=== PATIENT | female | born 1945 | race Caucasian/White ===

== ENCOUNTER → 2016-10-10 | Outpatient (CLI) | payer MEDICARE, OTHER | END | disposition home or self-care (01) | LOC: GMAJ 10:32 | PROVIDERS: ATTEND Family Medicine | DX: D50.9 Iron deficiency anemia, unspecified (principal); E78.1 Pure hyperglyceridemia ==

== ENCOUNTER 2016-11-12 11:20 | Emergency (ER) | payer MEDICARE, OTHER ==
--- NOTE | 2016-11-12 11:50 | ED.PDOC ---
History of Present Illness - General Chief Complaint: Problem Stated Complaint: UTI, dehydration Time Seen by Provider: 11/12/16 11:28 Source: patient, RN notes reviewed, Vital Signs reviewed Exam Limitations: no limitations - History of Present Illness Initial Comments: Patient came in because she is concerned she may be dehydrated and have a UTI. Her only symptoms are feeling shaky and a little dizzy. Drinking her normal amount of fluids. No urinary symptoms. No back pain. She is concerned because she had similar symptoms 18 months ago and at that time she was dehydrated and had a bad UTI. Timing/Duration: this morning Quality: mild Onset Location: other - None Radiation: none Prior abdominal problems: similar symptoms - Dx with UTI Improving Factors: nothing Worsening Factors: nothing Associated Symptoms: denies symptoms Allergies/Adverse Reactions: Allergies Atropine Allergy (Verified 11/12/16 11:53) Carisoprodol [From Soma] Allergy (Verified 11/12/16 11:53) Home Medications: Ambulatory Orders Amlodipine Besylate-Benazepril [Lotrel 5-20 mg] 1 cap PO DAILY 04/22/15 Ascorbic Acid [Vitamin C] 500 mg PO DAILY 04/22/15 Aspirin [Aspirin Adult Low Dose] 81 mg PO DAILY 04/22/15 Calcium 600 mg PO DAILY 04/22/15 Cholecalciferol [Vitamin D3] 1,000 unit PO DAILY 04/22/15 Cyanocobalamin [Vitamin B12] 500 mcg PO DAILY 04/22/15 Folic Acid 1 mg PO DAILY 04/22/15 Vitamin E 400 unit PO DAILY 04/22/15 Nitrofurantoin Monohydrate Mac [Macrobid] 100 mg PO BID #14 cap 01/02/16 Review of Systems - Review of Systems Constitutional: States: no symptoms reported. Denies: chills, diaphoresis, fever, malaise, weakness EENTM: States: no symptoms reported Respiratory: States: no symptoms reported. Denies: cough, short of breath Cardiology: States: palpitations. Denies: chest pain Gastrointestinal/Abdominal: States: no symptoms reported. Denies: abdominal pain, nausea, vomiting Genitourinary: States: no symptoms reported. Denies: dysuria, frequency, hematuria Musculoskeletal: States: no symptoms reported. Denies: back pain Skin: Denies: no symptoms reported Neurological: States: other - shaky and dizzy All other Systems: No Change from Baseline Past Medical History (General) - Patient Medical History Hx Seizures: No Hx Stroke: No Hx Dementia: No Hx Asthma: No Hx of COPD: No Hx Cardiac Disorders: No Hx Congestive Heart Failure: No Hx Pacemaker: No Hx Hypertension: Yes Hx Thyroid Disease: No Hx Diabetes: No Hx Gastroesophageal Reflux: Yes Hx Renal Disease: No Hx Cancer: No Hx of HIV: No Hx Hepatitis C: No Hx MRSA: No - Vaccination History Hx Tetanus, Diphtheria Vaccination: Yes Hx Influenza Vaccination: Yes Hx Pneumococcal Vaccination: Yes - Social History Hx Tobacco Use: No Hx Chewing Tobacco Use: No Hx Alcohol Use: No Hx Substance Use: No Hx Substance Use Treatment: No Hx Depression: No Hx Physical Abuse: No Hx Emotional Abuse: No Hx Suspected Abuse: No - Female History Patient : No Family Medical History - Family History Mother Family History: Unknown Living Status: Hx Family Cancer: Yes - rectal Physical Exam - Physical Exam General Appearance: Alert, Comfortable, No apparent distress, Well Developed, Well Groomed, Well Hydrated, Well Nourished Neck: non-tender, full range of motion, supple, normal inspection Cardiovascular/Respiratory: regular rate, rhythm, no M/R/G, normal breath sounds , no respiratory distress Gastrointestinal/Abdominal: normal bowel sounds, non tender, soft, no organomegaly, no pulsatile mass Back Exam: normal inspection, no CVA tenderness Extremity: normal range of motion, non-tender, normal inspection, no pedal edema Neurologic: no motor/sensory deficits, alert, normal mood/affect, oriented x 3 Skin Exam: normal color, warm/dry Comments: Vital Signs - 24 hr 11/12/16 11/12/16 11/12/16 11:40 12:38 13:49 Temperature 97.7 F Pulse Rate [ 88 84 86 Apical] Respiratory 18 18 16 Rate Blood Pressure 178/87 181/94 176/86 [Left Arm] O2 Sat by Pulse 97 95 98 Oximetry Progress - Progress Progress: 11/12/16 14:32 Patient had some BP elevation so gave some Cardizem Patient now is dressed and reports she is ready to go. - Results/Orders Results/Orders: Laboratory Tests 11/12/16 11/12/16 11/12/16 11:47 11:47 11:56 WBC 8.7 RBC 4.41 Hgb 13.8 Hct 42.0 MCV 95.3 MCH 31.3 H MCHC 32.8 L RDW 15.2 H Plt Count 341 MPV 8.8 Absolute Neuts (auto) 5.10 Absolute Lymphs (auto) 2.80 Absolute Monos (auto) 0.60 Absolute Eos (auto) 0.10 Absolute Basos (auto) 0.10 Neutrophils % 58.3 Lymphocytes % 32.3 Monocytes % 7.0 Eosinophils % 1.1 Basophils % 1.3 Sodium 140 Potassium 3.6 Chloride 104 Carbon Dioxide 27 Anion Gap 12.6 BUN 28 H Creatinine 1.21 BUN/Creatinine Ratio 23.1 H Random Glucose 103 Serum Osmolality 285.1 Calcium 9.3 Total Bilirubin 0.7 AST 19 ALT 11 Alkaline Phosphatase 66 Serum Total Protein 7.4 Albumin 4.5 Globulin 2.9 Albumin/Globulin Ratio 1.6 Urine Color Yellow Urine Appearance Clear Urine pH 6.5 Ur Specific [place] 1.015 Urine Protein Negative Urine Glucose (UA) Negative Urine Ketones Trace Urine Blood Negative Urine Nitrite Negative Urine Bilirubin Negative Urine Urobilinogen 0.2 Ur Leukocyte Esterase Trace H Urine RBC 0 Urine WBC 1-3 Ur Epithelial Cells 1-3 Urine Bacteria 0 Departure - Departure Clinical Impression: Dehydration Hypertension Qualifiers: Hypertension type: essential hypertension Qualified Code(s): I10 - Essential ( primary) hypertension Time of Disposition: 14:34 Disposition: Discharge to Home or Self Care Condition: Good Departure Forms: ED Discharge - Pt. Copy, Patient Portal Self Enrollment Instructions: DI for Dehydration -- Adult, High Blood Pressure Diet: resume usual diet Activity: increase activity as tolerated Referrals: Shalom Marcus MD [Primary Care Provider] - 1-2 Weeks Home Medications: Ambulatory Orders Amlodipine Besylate-Benazepril [Lotrel 5-20 mg] 1 cap PO DAILY 04/22/15 Ascorbic Acid [Vitamin C] 500 mg PO DAILY 04/22/15 Aspirin [Aspirin Adult Low Dose] 81 mg PO DAILY 04/22/15 Calcium 600 mg PO DAILY 04/22/15 Cholecalciferol [Vitamin D3] 1,000 unit PO DAILY 04/22/15 Cyanocobalamin [Vitamin B12] 500 mcg PO DAILY 04/22/15 Folic Acid 1 mg PO DAILY 04/22/15 Vitamin E 400 unit PO DAILY 04/22/15 Nitrofurantoin Monohydrate Mac [Macrobid] 100 mg PO BID #14 cap 01/02/16
[2016-11-12 11:52] VITALS: TEMP 97.7
[2016-11-12] MEDS: SODIUM CHLORIDE 0.9% 1000ML 1,000 ML IVS ONE (13:15)
[2016-11-12 13:50] VITALS: O2SAT 98
[2016-11-12 14:45] VITALS: BP 160/86
== END 2016-11-12 14:46 | disposition home or self-care (01) ==
LOC: ER 11:20
DX: E86.0 Dehydration (principal); I10 Essential (primary) hypertension; K21.9 Gastro-esophageal reflux disease without esophagitis; Z88.8 Allergy status to other drugs, medicaments and biological substances; Z79.82 Long term (current) use of aspirin; Z79.899 Other long term (current) drug therapy
CPT/HCPCS: 36415; 80053; 81001; 85025; J7030

== ENCOUNTER → 2016-12-29 | Outpatient (CLI) | payer MEDICARE, OTHER | LOC: GMA 15:03 | PROVIDERS: ATTEND Nurse Practitioner Family | DX: N39.0 Urinary tract infection, site not specified (principal) ==

== ENCOUNTER → 2017-05-01 | Outpatient (CLI) | payer MEDICARE, OTHER ==
--- NOTE | 2017-05-03 11:07 | MAM ---
EXAM DESCRIPTION: 3D Screening BILATERAL : Digital Mammography. CLINICAL HISTORY: 71 years Female SCREENING . No complaints. Remote family history of breast cancer. Postmenopausal. No HRT. Bilateral breast biopsies. COMPARISON: 2-D digital screening bilateral studies 04/17/2016 and 04/06/2014. No prior reports available. Reports from prior examinations also reviewed. Report from prior examination also reviewed. TECHNIQUE: Bilateral CC and MLO projection full-field images, 3-D tomosynthesis digital mammographic technique. Also bilateral synthesized CC/ MLO full-field images. CAD not utilized. FINDINGS: The breast parenchymal density pattern is: Heterogeneously dense breast tissue, which may obscure small masses. No skin thickening or nipple retraction . Numerous microcalcifications associated with dense fibroglandular tissues bilaterally. Groups of heterogeneous calcifications at the 1200 clock position and 130 clock position of the middle third of the left breast. Also the tendon 100 clock position in the anterior third of the breast. Calcifications appear to have increased since the prior study. Group of heterogeneous calcifications in the middle third of the lower inner quadrant of the right breast and the upper outer quadrant of the posterior third of the right breast, associated with dense fibroglandular tissues. Calcifications are more distinct and appear to have increased since the prior studies. Vascular calcifications.. No focal, stellate mass or density, and no focal asymmetry bilaterally. IMPRESSION: BI-RADS CATEGORY: 0 - INCOMPLETE- Need additional imaging evaluation. FOLLOW-UP: Recall for additional imaging: Bilateral 3-D tomosynthesis full field LM images. Bilateral digital orthogonal spot magnification images. Targeted ultrasound upper outer quadrant posterior third right breast. Written communication concerning the IMPRESSION and Follow-up, will be mailed to the patient and referring health care provider. Electronically signed by: Tim Mendiola MD 05/03/2017 11:05 AM CDT
== END ==
LOC: MAMMO 08:34
PROVIDERS: ATTEND Family Medicine
DX: Z12.31 Encounter for screening mammogram for malignant neoplasm of breast (principal)
CPT/HCPCS: 77063; G0202

== ENCOUNTER → 2017-05-15 | Outpatient (CLI) | payer MEDICARE, OTHER ==
--- NOTE | 2017-05-15 15:26 | US ---
EXAM DESCRIPTION: Breast,Bilateral: Ultrasound CLINICAL HISTORY: 71 yearsFemaleABNORMAL MAMMO COMPARISON: Digital 3-D tomosynthesis diagnostic bilateral breast on this visit. TECHNIQUE: Transcutaneous scanning of the bilateral breasts utilizing two-dimensional and Doppler modes. Scanning performed by the poultry and fish butcher and Dr. Mendiola. FINDINGS: Heterogeneous fibroglandular and fatty tissues at the 1200 clock position of the left breast 7 cm from the nipple also extending posterior. No large calcifications. Nonvascular. Similar appearing tissue at the 900 clock position of the left breast 11 cm from the nipple. Nonvascular. No skin thickening bilaterally. No discrete solid mass or cyst. No large calcifications or parenchymal edema. IMPRESSION: 1. Bi-Rads Category 2: Benign. 2. Please refer to bilateral breast 3-D tomosynthesis diagnostic examination and report on this visit. The FINDINGS and the follow-up plan were reviewed in person with the patient after the examination. Written communication explaining the IMPRESSION and follow-up will be mailed to the patient and referring care provider. Electronically signed by: Tim Mendiola MD 05/15/2017 3:24 PM [facility]
--- NOTE | 2017-05-15 15:27 | MAM ---
EXAM DESCRIPTION: 3D Diagnostic, Bilateral: Digital Mammography CLINICAL HISTORY: 71 yearsFemaleABNORMAL MAMMO. Bilateral diffuse microcalcifications and dense breast tissue.. COMPARISON: 3-D tomosynthesis bilateral breasts screening examination 05/01/2017. Targeted bilateral breast ultrasound on this visit. Report from prior examination also reviewed. TECHNIQUE: Bilateral LM projection full-field images, 3-D tomosynthesis digital mammographic technique. Also bilateral synthesized LM full-field images. Bilateral 2-D digital magnification views of the regions of interest, CC and LM projections. CAD not utilized. FINDINGS: The breast parenchymal density pattern is: Heterogeneously dense breast tissue, which may obscure small masses. No skin thickening or nipple retraction dense fibroglandular tissues at the 1200 clock position of the left breast in the middle third of the breast. Associated with microcalcifications which are also seen in the upper outer quadrant. Densities fibroglandular tissues in the posterior third of the right breast centrally and laterally at 900 clock position. Calcifications are heterogeneous and mostly round. Some dystrophic calcifications. No focal, stellate mass or density, focal asymmetry , and no suspicious microcalcifications bilaterally. Ultrasound: Heterogeneous fibroglandular and fatty tissues at the 1200 clock position of the left breast 7 cm from the nipple also extending posterior. No large calcifications. Nonvascular. Similar appearing tissue at the 900 clock position of the left breast 11 cm from the nipple. Nonvascular. No skin thickening bilaterally. No discrete solid mass or cyst. No large calcifications or parenchymal edema. IMPRESSION: BI-RADS CATEGORY: 2 - BENIGN FINDINGS. FOLLOW UP: Return to routine digital bilateral screening, one year interval from April 2017. The FINDINGS and the follow-up plan were reviewed in person with the patient after the examination. Written communication explaining the IMPRESSION and follow-up will be mailed to the patient and referring care provider. According to the [employer], yearly mammograms are recommended starting at age 40 and continuing as long as a woman is in good health. Any breast change noted on a breast self-exam should be reported promptly to the patient's healthcare provider. Breast MRI is recommended for women with an approximately 20-25% or greater lifetime risk of breast cancer, including women with a strong family history of breast or ovarian cancer and women who have been treated for Hodgkin's disease. A negative mammographic report should not delay tissue diagnosis in patients with significant clinical history or physical findings. Extremely dense breast tissue limits the sensitivity of digital mammography. Electronically signed by: Tim Mendiola MD 05/15/2017 3:25 PM [facility]
== END | disposition home or self-care (01) ==
LOC: MAMMO 11:23
PROVIDERS: ATTEND Family Medicine
DX: R92.8 Other abnormal and inconclusive findings on diagnostic imaging of breast (principal)
CPT/HCPCS: 76641; G0204; G0279

== ENCOUNTER → 2017-10-10 | Outpatient (CLI) | payer MEDICARE, OTHER ==
--- NOTE | 2017-10-10 16:25 | US ---
EXAM DESCRIPTION: Carotid Duplex: ULTRASOUND. CLINICAL HISTORY: OCCLUSION AND STENOSIS OF RIGHT CAROTID ARTERY COMPARISON: MRI scan of the brain and IACs on the same visit. TECHNIQUE: Transcutaneous scanning utilizing 2-dimensional and Doppler modes to evaluate the bilateral carotid systems and vertebral arteries. Percentage of diameter of stenosis or no stenosis recorded will be based upon NASCET criteria. FINDINGS: Peak systolic/end diastolic (CM-Sec) CCA Right 71/15 Left 80/25. ICA Right proximal 41/17, distal 42/19. Left proximal 25/10, Distal 49/26. Vertebral Right 56/23 Left 44/13. ECA (PS Only) Right 54 left 58. ICA/CCA peak systolic ratio: Right 0.6 Left 0.6 ICA/CCA end diastolic ratio: Right 1.2 Left 1.1 Vertebral arteries: antegrade flow. Comments: Bilateral atherosclerotic calcification in the bifurcations. Spectral broadening in the mid right ICA. Area stenosis in the proximal right ICA 33%; diameter stenosis 37%. IMPRESSION: 1. Doppler evaluation of the bilateral carotid systems and vertebral arteries shows no hemodynamically significant stenoses. 2. No significant amount of plaque seen in the carotid arteries bilaterally. Bilateral vertebral arteries showed antegrade-cephalad flow. Electronically signed by: Tim Mendiola MD 10/10/2017 4:24 PM CDT
--- NOTE | 2017-10-10 16:38 | MRI ---
EXAM DESCRIPTION: Brain and IAC w/o Contrast: Magnetic Resonance Imaging. CLINICAL HISTORY: TINNITUS COMPARISON: Duplex ultrasound of the bilateral carotid and vertebral arteries on this visit. TECHNIQUE: Diffusion axial imaging of the brain. Multiplanar high-field unit, multiple conventional sequences through the IACs, and the brain, without gadolinium IV contrast. FINDINGS: Normal signal in the IACs with no abnormal enhancement and no mass. No fluid in the mastoid air cells. Normal contour of the cerebellopontine angles with no mass. No aneurysm of the distal vertebral arteries or proximal basilar artery in the premedullary space. Included paranasal sinuses are unremarkable. Pituitary gland occupies most of the sella compartment. Bony calvarium is intact. Base of the cerebellar tonsils is above the foramen magnum. Multiple foci of bright FLAIR signal in the periventricular white matter and arriola-white matter junctions of the cerebral hemispheres. Similar focal bright signal anterior to the left basal ganglia. No hemorrhage, no cerebral edema, no mass-effect. Normal signal in the brainstem and cerebellar hemispheres. No hemorrhage, no cerebral edema, no mass-effect. Concordance of the diffusion and non-diffusion sequences with no evidence of acute or subacute infarction. Cortical sulci, ventricles, and other CSF spaces, and the subdural spaces are normally configured for patients age..No effacement or displacement. No midline shift. No extra-axial hemorrhage. IMPRESSION: 1. No mass effect in the cerebellopontine angles. Bilateral 7th and 8th cranial nerves appear symmetric. Vessels in the premedullary CSF space and prepontine space are unremarkable. 2. Bilateral multifocal white matter signal most likely related to cerebral microvascular disease or age-related changes. No hemorrhage cerebral edema or mass effect. 3. Normal noncontrast MRI diffusion study with no evidence of acute or subacute infarction. Electronically signed by: Tim Mendiola MD 10/10/2017 4:36 PM CDT
== END | disposition home or self-care (01) ==
LOC: MRI 13:30
PROVIDERS: ATTEND Family Medicine
DX: H93.19 Tinnitus, unspecified ear (principal); I65.21 Occlusion and stenosis of right carotid artery

== ENCOUNTER → 2017-11-05 | Outpatient (CLI) | payer MEDICARE, OTHER | LOC: GMAJ 18:49 | PROVIDERS: ATTEND Family Medicine | DX: H53.8 Other visual disturbances (principal); L02.416 Cutaneous abscess of left lower limb ==

== ENCOUNTER 2017-11-25 08:10 | Emergency (ER) | payer MEDICARE, OTHER ==
[2017-11-25 08:29] VITALS: TEMP 96.1
[2017-11-25] MEDS ORDERED: SODIUM CHLORIDE 0.9% 1000ML 1,000 ML IVS ONE (08:38)
--- NOTE | 2017-11-25 08:38 | ED.PDOC ---
History of Present Illness - General Chief Complaint: GI Problem Stated Complaint: diarrhea Time Seen by Provider: 11/25/17 08:35 Source: patient, Vital Signs reviewed Exam Limitations: no limitations - History of Present Illness Timing/Duration: 1 week Improving Factors: nothing Associated Symptoms: malaise, weakness Allergies/Adverse Reactions: Allergies Atropine Allergy (Verified 11/12/16 11:53) Carisoprodol [From Soma] Allergy (Verified 11/12/16 11:53) Home Medications: Ambulatory Orders Ascorbic Acid [Vitamin C] 500 mg PO DAILY 04/22/15 Aspirin [Aspirin Adult Low Dose] 81 mg PO DAILY 04/22/15 Calcium 600 mg PO DAILY 04/22/15 Cyanocobalamin [Vitamin B12] 500 mcg PO DAILY 04/22/15 Folic Acid 1 mg PO DAILY 04/22/15 Vitamin E 400 unit PO DAILY 04/22/15 Amlodipine Besylate-Benazepril [Lotrel 10-20 mg] 1 cap PO DAILY 11/25/17 Ciprofloxacin [Cipro] 500 mg PO BID #20 tab 11/25/17 metroNIDAZOLE [Flagyl] 500 mg PO Q8H #30 tab 11/25/17 Review of Systems - Review of Systems Constitutional: States: no symptoms reported EENTM: States: no symptoms reported Respiratory: States: no symptoms reported Cardiology: States: no symptoms reported Gastrointestinal/Abdominal: States: see HPI, abdominal pain, diarrhea Genitourinary: States: no symptoms reported Musculoskeletal: States: no symptoms reported Skin: States: no symptoms reported Neurological: States: no symptoms reported Endocrine: States: no symptoms reported Hematologic/Lymphatic: States: no symptoms reported Past Medical History (General) - Patient Medical History Hx Seizures: No Hx Stroke: No Hx Dementia: No Hx Asthma: No Hx of COPD: No Hx Cardiac Disorders: No Hx Congestive Heart Failure: No Hx Pacemaker: No Hx Hypertension: Yes Hx Thyroid Disease: No Hx Diabetes: No Hx Gastroesophageal Reflux: Yes Hx Renal Disease: No Hx Cancer: No Hx of HIV: No Hx Hepatitis C: No Hx MRSA: No Surgical History: appendectomy, cholecystectomy, tonsillectomy - Vaccination History Hx Tetanus, Diphtheria Vaccination: Yes Hx Influenza Vaccination: Yes Hx Pneumococcal Vaccination: Yes - Social History Hx Tobacco Use: Yes Hx Chewing Tobacco Use: No Hx Alcohol Use: No Hx Substance Use: No Hx Substance Use Treatment: No Hx Depression: No Hx Physical Abuse: No Hx Emotional Abuse: No Hx Suspected Abuse: No - Female History Patient : No Family Medical History - Family History Mother Family History: Unknown Living Status: Hx Family Cancer: Yes - rectal Physical Exam - Physical Exam General Appearance: Alert, Comfortable Eye Exam: bilateral normal Ears, Nose, Throat: hearing grossly normal, normal ENT inspection Neck: non-tender, full range of motion, supple Respiratory: chest non-tender, lungs clear, normal breath sounds, no respiratory distress Cardiovascular/Chest: normal peripheral pulses, regular rate, rhythm, no edema, no gallop, no JVD, no murmur Gastrointestinal/Abdominal: normal bowel sounds, non tender, soft, no organomegaly, no pulsatile mass, abnormal bowel sounds Back Exam: normal inspection, no CVA tenderness, no vertebral tenderness Extremity: normal range of motion, non-tender, normal inspection Neurologic: cable inspector II-XII nml as tested, no motor/sensory deficits, alert, normal mood/affect, oriented x 3 Progress - Results/Orders Results/Orders: Laboratory Tests 11/25/17 11/25/17 08:53 08:53 WBC 10.2 RBC 4.56 Hgb 14.2 Hct 43.0 MCV 94.3 MCH 31.1 H MCHC 32.9 L RDW 15.2 H Plt Count 398 MPV 9.3 Absolute Neuts (auto) 6.90 H Absolute Lymphs (auto) 2.40 Absolute Monos (auto) 0.70 Absolute Eos (auto) 0.20 Absolute Basos (auto) 0.10 Neutrophils % 68.0 Lymphocytes % 23.0 Monocytes % 6.5 Eosinophils % 1.7 Basophils % 0.8 Sodium 140 Potassium 3.6 Chloride 106 Carbon Dioxide 25 Anion Gap 12.6 BUN 22 H Creatinine 1.03 BUN/Creatinine Ratio 21.4 H Random Glucose 93 Serum Osmolality 282.4 Calcium 9.0 Total Bilirubin 0.4 AST 21 ALT 11 Alkaline Phosphatase 56 Serum Total Protein 7.9 Albumin 4.5 Globulin 3.4 Albumin/Globulin Ratio 1.3 Departure - Departure Clinical Impression: Diarrhea, Diverticulitis of sigmoid colon Time of Disposition: 09:57 Disposition: Discharge to Home or Self Care Condition: Good Departure Forms: ED Discharge - Pt. Copy, Patient Portal Self Enrollment Referrals: Shalom Marcus MD [Primary Care Provider] - 1-2 Weeks Prescriptions: Ciprofloxacin [Cipro] 500 mg PO BID #20 tab metroNIDAZOLE [Flagyl] 500 mg PO Q8H #30 tab Home Medications: Ambulatory Orders Ascorbic Acid [Vitamin C] 500 mg PO DAILY 04/22/15 Aspirin [Aspirin Adult Low Dose] 81 mg PO DAILY 04/22/15 Calcium 600 mg PO DAILY 04/22/15 Cyanocobalamin [Vitamin B12] 500 mcg PO DAILY 04/22/15 Folic Acid 1 mg PO DAILY 04/22/15 Vitamin E 400 unit PO DAILY 04/22/15 Amlodipine Besylate-Benazepril [Lotrel 10-20 mg] 1 cap PO DAILY 11/25/17 Ciprofloxacin [Cipro] 500 mg PO BID #20 tab 11/25/17 metroNIDAZOLE [Flagyl] 500 mg PO Q8H #30 tab 11/25/17
[2017-11-25 10:02] VITALS: BP 145/79; O2SAT 94
== END 2017-11-25 10:02 | disposition home or self-care (01) ==
LOC: ER 08:10
DX: K57.32 Diverticulitis of large intestine without perforation or abscess without bleeding (principal); R19.7 Diarrhea, unspecified; I10 Essential (primary) hypertension; Z87.891 Personal history of nicotine dependence; Z79.82 Long term (current) use of aspirin
CPT/HCPCS: 36415; 80053; 85025; J7030

== ENCOUNTER → 2017-11-27 | Outpatient (CLI) | payer MEDICARE, OTHER ==
--- NOTE | 2017-11-28 11:39 | CT ---
EXAM DESCRIPTION: Abdoment/Pelvis w/o Contrast: Computed Tomography. CLINICAL HISTORY: K57.32. Diverticulitis of large intestine without perforation or abscess without bleeding. COMPARISON: None. TECHNIQUE: Spiral-axial scans 5.0 mm intervals through the abdomen and pelvis without oral or IV contrast. Coronal and sagittal 2.0 mm reconstructions. Total Exam DLP: 278.74 mGy-cm. This exam was performed according to our departmental CT dose-optimization program which includes automated exposure control, adjustment of the mA and/or kV according to patient size and/or use of iterative reconstruction technique; to reduce radiation dose to as low as reasonably achievable (ALARA). Technically difficult study due to lack of IV contrast, increased bowel gas, and decreased amount of peritoneal and retroperitoneal fat. FINDINGS: Lung bases and pleura: Minimal scarring in the lung bases. Coronary artery calcifications. Liver, stomach, spleen, and adrenal glands: Stomach unremarkable. Solid organs are negative. Pancreas, Gallbladder, and Ducts: Gallbladder not visualized. No fluid in the gallbladder fossa. Minimal common bile duct dilation. Vascular calcifications abutting the pancreas but otherwise negative. Kidneys and Ureters: 5.5 mm calcification abutting the medial right renal pelvis which could represent urinary tract stone versus atherosclerotic calcification. 3 mm calcification above the renal pelvis is probably vascular as is another small calcification in the vicinity of the left renal artery. No hydronephrosis or perinephric fluid. Right kidney is unremarkable. Bilateral proximal renal artery calcifications. Mesentery: Difficult to visualize around some organs. No definite stranding or fascial thickening. No ascites or free intraperitoneal air. Aorta: Ectasia and moderate atherosclerotic calcifications, especially tortuous just below the ascending region with atherosclerotic calcification in the ostia of the major branch vessels. Significant luminal narrowing proximal common iliac arteries more on the right. Small Bowel: Diffuse gas and minimal fluid but no significant air-fluid levels minimally increased density of the surrounding fat in the pelvis. Terminal Ileum/Cecum: Inferior position in the midline pelvis. TI and appendix not well visualized. Colon: Fecal matter and air-fluid levels proximal and mid colon normal caliber distally. Few diverticula distally with no soft tissue mass, pericolonic fatty edema, wall thickening, or obstruction. Pelvic Organs: Mass effect on the superior urinary bladder by small bowel with no radiodense stones. Distal ureters difficult to visualize. There may be minimal fluid in the cul-de-sac. Ovaries and uterus not well visualized. Spine and Bony Pelvis: Spondylosis L3-4 L2-3 and L1 to with canal and foraminal narrowing. Bilateral hip joint arthrosis more advanced on the right. A density in the bilateral SI joints with more periarticular sclerosis on the right. Abdominal Wall/Back Soft Tissues: Negative. IMPRESSION: 1. Limited study due to lack of IV and oral contrast and paucity of intra-abdominal fat as well as diffuse gas in the distal small bowel. 2. Distal colon showing few diverticula, no mucosal thickening. No surrounding fatty stranding or fluid and no dilation in the rectosigmoid. If symptoms persist, consider follow-up study with oral and IV contrast. 3. Increased gaseous in the distal small bowel with no significant air-fluid levels or distention. Minimal density in the adjacent fatty tissues in the lower mid abdomen and upper mid pelvis which may indicate a nonspecific enteritis. 4. Mass effect on the urinary bladder with no radiodense stones. Uterus and ovaries not well seen if present. 5. 5 mm radiodense stone abutting the left renal pelvis versus vascular calcification. No hydronephrosis or perinephric fluid on the left. 6. Diffuse atherosclerotic disease in the abdominal aorta with no aneurysm but significant narrowing distally extending into the bilateral common iliac arteries. If occlusive disease is suspected in the distal aorta or runoff vessels, consider CTA abdomen and lower extremities. Electronically signed by: Tim Mendiola MD 11/28/2017 11:37 AM CDT
== END ==
LOC: LAB.O 11:17
PROVIDERS: ATTEND Family Medicine
DX: K57.32 Diverticulitis of large intestine without perforation or abscess without bleeding (principal); N20.0 Calculus of kidney; I70.0 Atherosclerosis of aorta

== ENCOUNTER → 2017-11-28 | Outpatient (CLI) | payer MEDICARE, OTHER | LOC: LAB.O 11:29 | PROVIDERS: ATTEND Internal Medicine Gastroenterology | DX: R19.7 Diarrhea, unspecified (principal); D50.9 Iron deficiency anemia, unspecified ==

== ENCOUNTER 2017-12-02 11:24 | Emergency (ER) | payer MEDICARE, OTHER ==
[2017-12-02 11:41] VITALS: TEMP 97.9
[2017-12-02] MEDS ORDERED: SODIUM CHLORIDE 0.9% 1000ML 1,000 ML IVS ONE (11:46)
--- NOTE | 2017-12-02 11:49 | ED.PDOC ---
History of Present Illness - General Chief Complaint: GI Problem Time Seen by Provider: 12/02/17 11:32 Information Source: patient Exam Limitations: no limitations - History of Present Illness Initial Comments: patient comes in today for weakness and diarrhea. Patient states for the past week she's had loose stools after every meal. She states that she can't keep anything in her stomach without having to go to the bathroom. Because of this she's eaten very little. She has no nausea or vomiting and she denies any abdominal pain. The patient did state that this morning when she was washing her dog she went to get up and felt very weak like she was going to pass out. However, she had no chest pain, palpitations, shortness of breath, or loss of consciousness. Patient attributes this to severe weakness. Patient is normally 110 pounds and has lost down to 106 at her doctor's appointment with a tack maker on Sunday. Patient states they did a lot of blood work but she has not yet had results. Patient denies giving a stool sample any time. Patient has gone twice this morning. Patient denies any recent travel, fever, or chills. She initially says that she's never had the stomach problems before. However, she states she is very careful with her diet so that she doesn 't have in her mind this helps keep her in good stomach health. When asked again to explain if perhaps that means that she's had problems that she is trying to control and she denies this. Patient eats very little but states she is doing this to try to stay healthy and she has plenty of fresh fruits and vegetables. She has a past medical history of hypertension and she does smoke. Drugs or alcohol use is very limited to approximately 1 time a week a couple glasses of wine. She has not taken anything for diarrhea and the only over-the- counter medication that she tries a probiotic and Gas-X. Abdominal Pain Onset Location: other Timing/Duration: 1 week Review of Systems - Review of Systems Constitutional: States: weakness. Denies: chills, diaphoresis, fever EENTM: Denies: eye pain, ear pain, nose pain, throat pain Respiratory: Denies: cough, short of breath, wheezing Cardiology: Denies: chest pain, edema, palpitations, syncope Gastrointestinal/Abdominal: States: diarrhea. Denies: abdominal pain, constipation, nausea, vomiting Genitourinary: States: no symptoms reported. Denies: dysuria, frequency, hematuria Musculoskeletal: States: no symptoms reported Skin: States: no symptoms reported Neurological: States: no symptoms reported Past Medical History (General) - Patient Medical History Hx Seizures: No Hx Stroke: No Hx Dementia: No Hx Asthma: No Hx of COPD: No Hx Cardiac Disorders: No Hx Congestive Heart Failure: No Hx Pacemaker: No Hx Hypertension: Yes Hx Thyroid Disease: No Hx Diabetes: No Hx Gastroesophageal Reflux: Yes Hx Renal Disease: No Hx Cancer: No Hx of HIV: No Hx Hepatitis C: No Hx MRSA: No - Vaccination History Hx Tetanus, Diphtheria Vaccination: Yes Hx Influenza Vaccination: Yes - 2017 Hx Pneumococcal Vaccination: Yes - Social History Hx Tobacco Use: Yes Hx Chewing Tobacco Use: No Hx Alcohol Use: No Hx Substance Use: No Hx Substance Use Treatment: No Hx Depression: No Hx Physical Abuse: No Hx Emotional Abuse: No Hx Suspected Abuse: No - Female History Patient : No Family Medical History - Family History Mother Family History: Unknown Living Status: Hx Family Cancer: Yes - rectal Physical Exam - Physical Exam General Appearance: Alert, Comfortable, No apparent distress Eyes, Ears, Nose, Throat Exam: PERRL/EOMI, normal ENT inspection, TMs normal, pharynx normal Neck: non-tender, full range of motion, supple, normal inspection, carotid bruit Respiratory: chest non-tender, lungs clear, normal breath sounds, no respiratory distress Cardiovascular/Chest: normal peripheral pulses, regular rate, rhythm, no edema, no gallop, no JVD, no murmur Peripheral Pulses: No deficit - soft, non tender, non distended, hyperactive BS Neurologic: alert, oriented x 3 Progress - Progress Progress: 12/02/17 13:00 12/02/17 11:46 CLOSTRIDIUM DIFFICILE AG/TOXIN Urgent STOOL CULTURE Stat Laboratory Results WBC 11.0 K/mm3 (4.8-10.8) H 12/02/17 11:57 RBC 4.39 M/mm3 (4.20-5.40) 12/02/17 11:57 Hgb 13.9 gm/dL (12.0-16.0) 12/02/17 11:57 Hct 41.3 % (36.0-47.0) 12/02/17 11:57 MCV 94.1 fl (81.0-99.0) 12/02/17 11:57 MCH 31.6 pg (27.0-31.0) H 12/02/17 11:57 MCHC 33.6 g/dL (33.0-37.0) 12/02/17 11:57 RDW 15.4 % (11.5-14.5) H 12/02/17 11:57 Plt Count 393 K/mm3 (130-400) 12/02/17 11:57 MPV 9.1 fl (7.40-10.4) 12/02/17 11:57 Absolute Neuts (auto) 8.30 K/uL (1.8-6.8) H 12/02/17 11:57 Absolute Lymphs (auto) 1.80 K/uL (1.0-3.4) 12/02/17 11:57 Absolute Monos (auto) 0.70 K/uL (0.2-0.8) 12/02/17 11:57 Absolute Eos (auto) 0.10 K/uL (0.0-0.4) 12/02/17 11:57 Absolute Basos (auto) 0.10 K/uL (0.0-0.1) 12/02/17 11:57 Neutrophils % 75.6 % (42.0-78.0) 12/02/17 11:57 Lymphocytes % 16.5 % (20.0-50.0) L 12/02/17 11:57 Monocytes % 6.8 % (2.0-9.0) 12/02/17 11:57 Eosinophils % 0.5 % (1.0-5.0) L 12/02/17 11:57 Basophils % 0.6 % (0.0-2.0) 12/02/17 11:57 Sodium 139 mmol/L (135-145) 12/02/17 11:57 Potassium 3.3 mmol/L (3.6-5.0) L 12/02/17 11:57 Chloride 107 mmol/L (101-111) 12/02/17 11:57 Carbon Dioxide 23 mmol/L (21-31) 12/02/17 11:57 Anion Gap 12.3 (12-18) 12/02/17 11:57 BUN 15 mg/dL (7-18) 12/02/17 11:57 Creatinine 1.31 mg/dL (0.6-1.3) H 12/02/17 11:57 BUN/Creatinine Ratio 11.5 (10-20) 12/02/17 11:57 Random Glucose 123 mg/dL (70-105) H 12/02/17 11:57 Serum Osmolality 279.7 mOsm/L (275-295) 12/02/17 11:57 Calcium 9.5 mg/dL (8.4-10.2) 12/02/17 11:57 Total Bilirubin 0.7 mg/dL (0.2-1.0) 12/02/17 11:57 AST 20 IU/L (10-42) 12/02/17 11:57 ALT 14 IU/L (10-60) 12/02/17 11:57 Alkaline Phosphatase 41 IU/L (42-121) L 12/02/17 11:57 Serum Total Protein 7.2 gm/dL (6.4-8.2) 12/02/17 11:57 Albumin 4.1 g/dl (3.2-5.5) 12/02/17 11:57 Globulin 3.1 gm/dL (2.3-3.5) 12/02/17 11:57 Albumin/Globulin Ratio 1.3 (1.1-1.9) 12/02/17 11:57 Patient was unable to give a sample while here and had no diarrhea. She feels better after IVF and does not want to wait to give a sample. She will increase her caloric and complex carb intake and follow up as scheduled. Departure - Departure Clinical Impression: Acute diarrhea Disposition: Discharge to Home or Self Care Condition: Good Departure Forms: ED Discharge - Pt. Copy, Patient Portal Self Enrollment Diet: other - increase solid complex carbohydrates Referrals: Shalom Marcus MD [Primary Care Provider] - 1-2 Weeks Home Medications: Ambulatory Orders Ascorbic Acid [Vitamin C] 500 mg PO DAILY 04/22/15 Aspirin [Aspirin Adult Low Dose] 81 mg PO DAILY 04/22/15 Calcium 600 mg PO DAILY 04/22/15 Cyanocobalamin [Vitamin B12] 500 mcg PO DAILY 04/22/15 Folic Acid 1 mg PO DAILY 04/22/15 Vitamin E 400 unit PO DAILY 04/22/15 Amlodipine Besylate-Benazepril [Lotrel 10-20 mg] 1 cap PO DAILY 11/25/17 Ciprofloxacin [Cipro] 500 mg PO BID #20 tab 11/25/17 metroNIDAZOLE [Flagyl] 500 mg PO Q8H #30 tab 11/25/17 Additional Instructions: return to ER for weakness, LOC. Follow up as scheduled with GI doctor
[2017-12-02 13:05] VITALS: O2SAT 97
[2017-12-02 13:26] VITALS: BP 145/86
== END 2017-12-02 13:26 | disposition home or self-care (01) ==
LOC: ER 11:24
DX: R19.7 Diarrhea, unspecified (principal); R53.1 Weakness; I10 Essential (primary) hypertension; F17.200 Nicotine dependence, unspecified, uncomplicated; K21.9 Gastro-esophageal reflux disease without esophagitis
CPT/HCPCS: 36415; 80053; 85025; J7030

== ENCOUNTER → 2018-02-07 | Outpatient (CLI) | payer MEDICARE, OTHER | LOC: GMAJ 10:53 | PROVIDERS: ATTEND Family Medicine | DX: E53.8 Deficiency of other specified B group vitamins (principal); D50.9 Iron deficiency anemia, unspecified; I10 Essential (primary) hypertension ==

== ENCOUNTER → 2018-02-18 | Outpatient (CLI) | payer MEDICARE, OTHER | LOC: LAB.O 10:43 | PROVIDERS: ATTEND Internal Medicine Gastroenterology | DX: K52.89 Other specified noninfective gastroenteritis and colitis (principal); D50.0 Iron deficiency anemia secondary to blood loss (chronic); R63.4 Abnormal weight loss; R53.83 Other fatigue ==

== ENCOUNTER → 2018-05-21 | Outpatient (CLI) | payer MEDICARE, OTHER ==
--- NOTE | 2018-05-22 11:17 | MAM ---
EXAM DESCRIPTION: 3D Screening BILATERAL : Digital Mammography. CLINICAL HISTORY: 72 years Female SCREENING . No complaints. No personal or family history of breast cancer. Childbirth. Postmenopausal. No HRT. Bilateral breast benign biopsy.. Lifetime risk of developing breast cancer (Tyrer-Cuzick model)(%): 4.7. COMPARISON: Bilateral screening digital breast tomosynthesis 05/01/2017. Right breast diagnostic digital tomosynthesis 05/15/2017.. TECHNIQUE: Bilateral CC and MLO projection full-field images, digital tomosynthesis mammographic technique. Bilateral digital 2-D full-field MLO images. CAD not available for tomosynthesis or 2-D images. Left MLO images limited due to patient physical condition with pectoral muscle not well visualized. FINDINGS: The breast parenchymal density pattern is: Heterogeneously dense breast tissue, which may obscure small masses. No skin thickening or nipple retraction. Focal asymmetry in the posterior third of the right breast containing multiple microcalcifications. Bilateral vascular calcifications. Focal asymmetry in the upper outer quadrant of the middle third of the left breast is also stable and contains multiple calcifications. Pectoral muscle not well visualized on MLO projection of left breast.. No new focal, stellate mass or density, focal asymmetry , and no suspicious microcalcifications bilaterally. Stable mammograms compared to prior study. IMPRESSION: Benign exam. BIRAD CATEGORY: 2 BENIGN FINDINGS. RECOMMENDATIONS: FOLLOW UP: Routine digital bilateral mammographic screening, one year interval from May 2018. Written communication explaining the IMPRESSION and follow-up, will be mailed to the patient and referring health care provider. According to the [employer], yearly mammograms are recommended starting at age 40 and continuing as long as a woman is in good health. Any breast change noted on a breast self-exam should be reported promptly to the patient's healthcare provider. Breast MRI is recommended for women with an approximately 20-25% or greater lifetime risk of breast cancer, including women with a strong family history of breast or ovarian cancer and women who have been treated for Hodgkin's disease. A negative mammographic report should not delay tissue diagnosis in patients with significant clinical history or physical findings. Extremely dense breast tissue limits the sensitivity of digital mammography. Electronically signed by: Tim Mendiola MD 05/22/2018 11:15 AM SOFTWARE SYSTEMS ARCHITECT
== END ==
LOC: MAMMO 09:00
PROVIDERS: ATTEND Family Medicine
DX: Z12.31 Encounter for screening mammogram for malignant neoplasm of breast (principal)

== ENCOUNTER 2018-10-14 13:42 | Emergency (ER) | payer MEDICARE, OTHER ==
[2018-10-14] MEDS ORDERED: SODIUM CHLORIDE 0.9% 1000ML 1,000 ML IVS ONE (14:16)
--- NOTE | 2018-10-14 14:18 | ED.PDOC ---
History of Present Illness - General Chief Complaint: General Stated Complaint: near syncope, general weakness Time Seen by Provider: 10/14/18 14:10 Source: patient - History of Present Illness Initial Comments: Pt has sudden onset of near syncope while on the phone. the episode lasted only a few minutes but still feel weak. Timing/Duration: 1-3 hours Severity: moderate Improving Factors: rest Worsening Factors: nothing Associated Symptoms: malaise, weakness Allergies/Adverse Reactions: Allergies Atropine Allergy (Verified 11/12/16 11:53) Carisoprodol [From Soma] Allergy (Verified 11/12/16 11:53) Home Medications: Ambulatory Orders Ascorbic Acid [Vitamin C] 500 mg PO DAILY 04/22/15 Aspirin [Aspirin Adult Low Dose] 81 mg PO DAILY 04/22/15 Calcium 600 mg PO DAILY 04/22/15 Cyanocobalamin [Vitamin B12] 500 mcg PO DAILY 04/22/15 Folic Acid 1 mg PO DAILY 04/22/15 Vitamin E 400 unit PO DAILY 04/22/15 Amlodipine Besylate-Benazepril [Lotrel 10-20 mg] 1 cap PO DAILY 11/25/17 Ciprofloxacin [Cipro] 500 mg PO BID #20 tab 11/25/17 metroNIDAZOLE [Flagyl] 500 mg PO Q8H #30 tab 11/25/17 Nitrofurantoin Monohydrate Mac [Macrobid] 100 mg PO BID #10 capsule 10/14/18 Review of Systems - Review of Systems Constitutional: States: weakness. Denies: chills, diaphoresis, fever EENTM: States: no symptoms reported Respiratory: Denies: cough, short of breath Cardiology: Denies: chest pain, palpitations, syncope Gastrointestinal/Abdominal: Denies: abdominal pain, nausea, vomiting Genitourinary: States: no symptoms reported Musculoskeletal: States: no symptoms reported Skin: States: no symptoms reported Neurological: States: weakness. Denies: headache, numbness, paresthesia Endocrine: States: no symptoms reported Hematologic/Lymphatic: States: no symptoms reported Past Medical History (General) - Patient Medical History Hx Seizures: No Hx Stroke: No Hx Dementia: No Hx Asthma: No Hx of COPD: No Hx Cardiac Disorders: No Hx Congestive Heart Failure: No Hx Pacemaker: No Hx Hypertension: Yes Hx Thyroid Disease: No Hx Diabetes: No Hx Gastroesophageal Reflux: Yes Hx Renal Disease: No Hx Cancer: No Hx of HIV: No Hx Hepatitis C: No Hx MRSA: No Surgical History: appendectomy, cholecystectomy, tonsillectomy, other - Vaccination History Hx Tetanus, Diphtheria Vaccination: Yes Hx Influenza Vaccination: Yes Hx Pneumococcal Vaccination: Yes - Social History Hx Tobacco Use: Yes Hx Chewing Tobacco Use: No Hx Alcohol Use: No Hx Substance Use: No Hx Substance Use Treatment: No Hx Depression: No Hx Physical Abuse: No Hx Emotional Abuse: No Hx Suspected Abuse: No - Female History Patient : No Family Medical History - Family History Mother Family History: Unknown Living Status: Hx Family Cancer: Yes - rectal Hx Family;Other: none Physical Exam - Physical Exam General Appearance: Alert, Comfortable Eye Exam: bilateral normal Ears, Nose, Throat: hearing grossly normal, normal ENT inspection, normal pharynx Neck: non-tender, full range of motion, supple Respiratory: chest non-tender, lungs clear, normal breath sounds, no respiratory distress Cardiovascular/Chest: normal peripheral pulses, regular rate, rhythm, no edema Gastrointestinal/Abdominal: normal bowel sounds, non tender, soft Back Exam: normal inspection, no CVA tenderness Extremity: normal range of motion, non-tender, normal inspection, no pedal edema Neurologic: stone breaker II-XII nml as tested, no motor/sensory deficits, alert, normal mood/affect, oriented x 3 Skin Exam: normal color, warm/dry Lymphatic: no adenopathy Departure - Departure Clinical Impression: Orthostatic dizziness, Acute kidney injury UTI (urinary tract infection) Qualifiers: Urinary tract infection type: acute cystitis Hematuria presence: without hematuria Qualified Code(s): N30.00 - Acute cystitis without hematuria Disposition: Discharge to Home or Self Care Condition: Fair Departure Forms: ED Discharge - Pt. Copy, Patient Portal Self Enrollment Referrals: Shalom Marcus MD [Primary Care Provider] - 1-2 Weeks Prescriptions: Nitrofurantoin Monohydrate Mac [Macrobid] 100 mg PO BID #10 capsule Home Medications: Ambulatory Orders Ascorbic Acid [Vitamin C] 500 mg PO DAILY 04/22/15 Aspirin [Aspirin Adult Low Dose] 81 mg PO DAILY 04/22/15 Calcium 600 mg PO DAILY 04/22/15 Cyanocobalamin [Vitamin B12] 500 mcg PO DAILY 04/22/15 Folic Acid 1 mg PO DAILY 04/22/15 Vitamin E 400 unit PO DAILY 10/15/15 Amlodipine Besylate-Benazepril [Lotrel 10-20 mg] 1 cap PO DAILY 11/25/17 Ciprofloxacin [Cipro] 500 mg PO BID #20 tab 11/25/17 metroNIDAZOLE [Flagyl] 500 mg PO Q8H #30 tab 11/25/17 Nitrofurantoin Monohydrate Mac [Macrobid] 100 mg PO BID #10 capsule 10/14/18
[2018-10-14 16:17] VITALS: O2SAT 94
[2018-10-14 16:18] VITALS: BP 165/90; TEMP 97
== END 2018-10-14 16:18 | disposition home or self-care (01) ==
LOC: ER 13:42
DX: I95.1 Orthostatic hypotension (principal); N17.9 Acute kidney failure, unspecified; N30.00 Acute cystitis without hematuria; I10 Essential (primary) hypertension; K21.9 Gastro-esophageal reflux disease without esophagitis; Z87.891 Personal history of nicotine dependence; Z79.82 Long term (current) use of aspirin; Z79.899 Other long term (current) drug therapy; Z88.8 Allergy status to other drugs, medicaments and biological substances
CPT/HCPCS: 80053; 81001; 85025; 87086; J7030

== ENCOUNTER 2018-10-30 12:50 | Inpatient (IN) | payer MEDICARE, OTHER ==
--- NOTE | 2018-10-30 13:03 | HP ---
SUPERVISING PHYSICIAN: Shalom Marcus M.D. CHIEF COMPLAINT: Worsening shortness of breath with exacerbation of chronic obstructive pulmonary disease having failed outpatient treatment. HISTORY OF PRESENT ILLNESS: Ms Bassett is a 73 year-old female patient who has a history of chronic obstructive pulmonary disease but is not O2 dependent. This past Sunday, she went to [facility] walk-in clinic for upper respiratory infectious type symptoms and exacerbation of COPD. She was started on Levaquin and breathing treatments. She failed to get any improvement and presented back to Dr. Marcus' office today for further evaluation. On assessment, she was showing 88% saturations on room air. She was given a breathing treatment and only improved to 90%. After ambulation, she again dropped down into 88%. A chest x-ray was done which showed COPD changes but no acute consolidative processes. She had a BioFire testing done that showed she had parainfluenza. Initially she was given instructions that she needed to be admitted but opted not to be admitted, but to go home with treatment, but shortly after which she was convinced and was showing acute decline, the fact that she agreed to be admitted for further treatment of exacerbation of COPD secondary to parainfluenza. She was admitted directly to the hospital in stable condition. PAST MEDICAL HISTORY: 1. Chronic obstructive pulmonary disease. 2. Gastroesophageal reflux disease. 3. Hypertension. 4. Microscopic colitis. 5. Osteoporosis. 6. History of iron deficiency anemia treated with iron infusions. 7. Insomnia. PAST SURGICAL HISTORY: 1. Appendectomy in 1954. 2. Cholecystectomy in 1970. 3. Hysterectomy in 1969. 4. Tonsils and adenoids. 5. Breast biopsy 5 times with benign findings. 6. Hemorrhoidectomy. 7. Laminectomy of the cervical neck in 1990. HOME MEDICATIONS: 1. Vitamin E 400 units daily. 2. Folic acid 1 mg daily. 3. Vitamin B12 500 mcg daily. 4. Calcium 600 mg daily. 5. Vitamin C 500 mg daily. 6. Lotrel 10-20 mg 1 daily. ALLERGIES: ATROPINE AND CARISOPRODOL. FAMILY HISTORY: Father is at age 76 secondary to bleeding ulcers. Mother at age 81 secondary to anal cancer. She has 1 son who is healthy. SOCIAL HISTORY: The patient is retired, . Lives in [place], [place]. She is a current smoker of half to 1 pack a day and drinks alcohol approximately 2 times a week. REVIEW OF SYSTEMS: CONSTITUTIONAL: Positive for fever and general malaise. No unexplained weight loss. HEENT: Positive for nasal congestion, rhinorrhea, sore throat. Negative for ear pain or headaches. RESPIRATORY: Positive for increasing dyspnea with frequent wheezing. CARDIOPULMONARY: Negative for any chest pains, palpitations or syncopal episodes. GASTROINTESTINAL: Negative for any nausea or vomiting. GENITOURINARY: Denies any dysuria, hematuria or polyuria. NEUROLOGIC: Negative for any headaches, seizures, ataxia, vision changes. PHYSICAL EXAMINATION: VITAL SIGNS: In the clinic, initial vital signs showed temperature 98.6, blood pressure 118/78, heart rate 108. She was showing room air saturations of 88,.after breathing treatment to 90%, with ambulation back down to 88%, then after another breathing treatment with slight improvement up to 93%. Admission weight 47.4 kg. GENERAL: The patient is frail, ill-appearing but appears to be in no acute distress. She is alert. HEENT: Tympanic membranes are clear bilaterally. Oropharynx was pink and moist without any lesions. NECK: Supple, non-tender. Full range of motion. CHEST: Lung sounds are significantly diminished throughout all cobos with some mild inspiratory and expiratory wheezing. CARDIOVASCULAR: Regular rate and rhythm without appreciable murmurs, gallops, or rubs. ABDOMEN: Soft, non-tender. Positive bowel sounds. EXTREMITIES: Without any edema. NEUROLOGIC: She is alert and oriented times three. LABORATORY: White count on admission was 9,000 without differential showing a left shift. Hemoglobin 14.5, hematocrit 43.3, platelet count 253,000. Chemistry showed normal electrolytes. BUN was slightly elevated at 39, creatinine 1, glucose 110, calcium 9.2, magnesium 1.8. Liver functions are all within normal limits. BNP was slightly elevated at 118. Microscopic: Positive parainfluenza. Negative for Influenza A and B. RADIOLOGY: Chest x-ray in the clinic per radiology interpretation showed hyperexpanded lungs with mild left lower lobe infiltrate. ASSESSMENT: 1. Exacerbation of chronic obstructive pulmonary disease with resulting left lower lobe pneumonia secondary to recent viral pneumonitis with positive parainfluenza. 2. History of hypertension. 3. History of gastroesophageal reflux disease. 4. History of microscopic colitis. 5. Osteoporosis. 6. Iron-deficiency anemia having previously been on iron infusions. PLAN: Ms. Bassett is directly admitted to the hospital for ongoing treatment of community acquired pneumonia and COPD exacerbation. She did fail to respond to outpatient treatment and transitioned on Levaquin and steroids. Will go ahead and start her on some azithromycin and Rocephin given that she was previously on Levaquin. Will go ahead and put her on q.i.d. DuoNeb treatments as tolerated. She will be on DVT prophylaxis as per protocol. Will start her on a regular diet as tolerated. She will be on droplet isolation. Will review her medications and resume those as appropriate. Will anticipate her length of stay to be 2 to 3 days. Until she can transition to outpatient management will continue to monitor and treat as needed. #[id number] [facility]
[2018-10-30] MEDS ORDERED: ONDANSETRON INJ 4 MG/2 ML VIAL IV PRN (14:27)
[2018-10-30] MEDS ORDERED: SODIUM CHLORIDE 0.9% (FLUSH) 10 ML SYG IV PRN (14:27)
[2018-10-30] MEDS ORDERED: ACETAMINOPHEN 325 MG TAB PO PRN (14:27)
[2018-10-30] MEDS ORDERED: ALBUTEROL SULFATE 2.5 MG/3 ML VIAL NEB PRN (14:27)
[2018-10-30] MEDS ORDERED: IV SET AND CAP CHANGE INJ INJ SCH (14:30)
[2018-10-30] MEDS ORDERED: methylPREDNISolone SODIUM SUC 125 MG/2 ML VIAL IV ONE (14:30)
[2018-10-30] MEDS ORDERED: AZITHROMYCIN IV 500 MG in SODIUM CHLORIDE 0.9% 250ML 250 ML IVPB SCH (15:30)
[2018-10-30] MEDS ORDERED: cefTRIAXone SODIUM 1 GM VIAL ONE (15:37)
[2018-10-30] MEDS ORDERED: SODIUM CHLORIDE 0.9% 50ML 50 ML ONE (15:37)
[2018-10-30] MEDS: cefTRIAXone SODIUM 1 GM in SODIUM CHL 0.9% 50ML MIN-BAG+ 50 ML IVPB SCH (15:45)
[2018-10-30] MEDS ORDERED: AZITHROMYCIN IV 500 MG VIAL IVPB ONE (15:52)
[2018-10-30] MEDS ORDERED: SODIUM CHLORIDE 0.9% 250ML 250 ML ONE (15:52)
[2018-10-30] MEDS: AZITHROMYCIN IV 500 MG in SODIUM CHLORIDE 0.9% 250ML 250 ML IVPB SCH (17:02)
[2018-10-30] MEDS: IPRATROPIUM/ALBUTEROL 3 ML VIAL NEB SCH ×2 (18:47→20:04)
[2018-10-30] MEDS: KCL 20MEQ/D5 1/2NS 1,000 ML IVS PRN (19:03)
[2018-10-30] MEDS ORDERED: methylPREDNISolone SODIUM SUC 125 MG/2 ML VIAL ONE (19:34)
[2018-10-30] MEDS: BUDESONIDE NEBS 0.5 MG/2 ML VIAL NEB SCH (20:04)
[2018-10-30] MEDS: ENOXAPARIN SODIUM 40 MG/0.4 ML SYG SUBCU SCH (21:24)
[2018-10-30] MEDS: methylPREDNISolone SODIUM SUC 125 MG/2 ML VIAL IV SCH (21:41)
[2018-10-30] MEDS ORDERED: PANTOPRAZOLE SODIUM IV 40 MG VIAL ONE (23:33)
[2018-10-31] MEDS: methylPREDNISolone SODIUM SUC 125 MG/2 ML VIAL IV SCH (00:02)
[2018-10-31] MEDS ORDERED: methylPREDNISolone SODIUM SUC 125 MG/2 ML VIAL IV SCH ×2 (04:00→10:00)
[2018-10-31] MEDS: PANTOPRAZOLE SODIUM IV 40 MG VIAL IV SCH (06:20)
--- NOTE | 2018-10-31 06:53 | RAD ---
EXAM: XR Chest, 2 Views CLINICAL HISTORY: The patient is 73 years old and is Female; Pneumonia TECHNIQUE: Frontal and lateral views of the chest. COMPARISON: Chest radiograph from 09/18/2011 FINDINGS: LUNGS: The lungs are mildly hyperinflated. Apparent extraneous artifact projecting over the lateral aspect of the right lung base on the frontal view. Mild hazy increased density projecting over the lower lungs on the frontal view is also likely artifactual, related to overlying soft tissue. The lungs are otherwise clear. No focal consolidation visualized. PLEURAL SPACE: Slight blunting of the right costophrenic angle is unchanged and likely represents scarring. No significant pleural effusion visualized. No pneumothorax. HEART: No significant enlargement of the cardiac silhouette. MEDIASTINUM: Unremarkable. BONES/JOINTS: Degenerative changes of the spine. No acute fracture. IMPRESSION: No acute findings. Electronically signed by: Meenakshi Wilkes MD 10/31/2018 6:52 AM CDT
[2018-10-31] MEDS: IPRATROPIUM/ALBUTEROL 3 ML VIAL NEB SCH ×4 (08:31→20:00)
[2018-10-31] MEDS: BUDESONIDE NEBS 0.5 MG/2 ML VIAL NEB SCH ×2 (08:31→20:44)
--- NOTE | 2018-10-31 11:32 | PN ---
SUPERVISING PHYSICIAN: Shalom Marcus MD DATE: 10/31/18 SUBJECTIVE: The patient is sitting up in bed. She complains of shortness of breath with fatigue, especially with exertion, but denies any chest pain, nausea or vomiting. We discussed that she may have to get oxygen at home and discussed chronic obstructive pulmonary disease and did COPD teaching. OBJECTIVE: VITAL SIGNS: Temperature 98. Heart rate 93. Blood pressure 136/72. Respiratory rate 18. O2 saturation is 88% on 2 liters nasal cannula. RESPIRATORY: Diminished breath sounds throughout. No expiratory wheezing noted. She does get slightly tachypneic with any exertion and she does have to speak in short phrases due to dyspnea. CARDIAC: Regular rate and rhythm. GASTROINTESTINAL: Abdomen is soft, nondistended, nontender. Bowel sounds are positive. NEUROLOGIC: Awake, alert and oriented times three. LABORATORY: CBC is basically unremarkable. Electrolytes are within normal limits. BUN 28, creatinine 0.81. Chest x-ray shows no acute findings. All other labs and films have been reviewed via the EMR. ASSESSMENT: 1. Exacerbation of chronic obstructive pulmonary disease with resulting left lower lobe pneumonia secondary to recent viral pneumonitis with positive parainfluenza. 2. History of hypertension. 3. History of gastroesophageal reflux disease. 4. History of microscopic colitis. 5. Osteoporosis. 6. Iron-deficiency anemia having previously been on iron infusions. PLAN: We will continue present supportive care. I have ordered labs for in the morning. We will continue our antibiotics as previously ordered. I have also titrated down her IV steroids. Hopefully by tomorrow she can go to p.o. steroids. I have also ordered an ambulation study to see if she qualifies for oxygen. Hopefully, she can be discharged tomorrow or the next day with close followup with Dr. Marcus in office. Otherwise, we will continue to monitor the patient closely and follow as needed. [facility][id number] [facility]
[2018-10-31] MEDS: methylPREDNISolone SODIUM SUC 40 MG/ML VIAL IV SCH ×3 (11:45→23:32)
[2018-10-31] MEDS ORDERED: SODIUM CHL 0.9% 50ML MIN-BAG+ 50 ML IVPB ONE (15:16)
[2018-10-31] MEDS ORDERED: cefTRIAXone SODIUM 1 GM VIAL ONE (15:16)
[2018-10-31] MEDS: cefTRIAXone SODIUM 1 GM in SODIUM CHL 0.9% 50ML MIN-BAG+ 50 ML IVPB SCH (15:19)
[2018-10-31] MEDS ORDERED: SODIUM CHLORIDE 0.9% 250ML 250 ML ONE (15:44)
[2018-10-31] MEDS ORDERED: AZITHROMYCIN IV 500 MG VIAL IVPB ONE (15:45)
[2018-10-31] MEDS: AZITHROMYCIN IV 500 MG in SODIUM CHLORIDE 0.9% 250ML 250 ML IVPB SCH (15:51)
[2018-10-31] MEDS: ENOXAPARIN SODIUM 40 MG/0.4 ML SYG SUBCU SCH (20:34)
[2018-10-31] MEDS: KCL 20MEQ/D5 1/2NS 1,000 ML IVS PRN (23:07)
[2018-11-01] MEDS: methylPREDNISolone SODIUM SUC 40 MG/ML VIAL IV SCH (06:01)
[2018-11-01] MEDS: PANTOPRAZOLE SODIUM IV 40 MG VIAL IV SCH (06:01)
[2018-11-01] MEDS: BUDESONIDE NEBS 0.5 MG/2 ML VIAL NEB SCH ×2 (08:17→20:45)
[2018-11-01] MEDS: IPRATROPIUM/ALBUTEROL 3 ML VIAL NEB SCH ×4 (08:18→20:44)
[2018-11-01] MEDS: predniSONE 20 MG TAB PO SCH (08:36)
--- NOTE | 2018-11-01 10:48 | PN ---
SUPERVISING PHYSICIAN: Fredrick Jameson MD DATE: 11/01/18 SUBJECTIVE: The patient is sitting up in bed. She has some complaints of shortness of breath. We discussed her lab work as well as discharge plan. She denies nausea, vomiting, diarrhea or constipation or chest pain. OBJECTIVE: VITAL SIGNS: Temperature 97.8. Heart rate 98. Blood pressure 146/78. Respiratory rate 20. O2 saturation is 91% on 2 liters nasal cannula. RESPIRATORY: Diminished breath sounds throughout, but improved since yesterday. No wheezing or crackles noted. She gets slightly tachypneic with exertion or with talking. CARDIAC: Regular rate and rhythm. GASTROINTESTINAL: Abdomen is soft, nondistended, nontender. NEUROLOGIC: Awake, alert and oriented times three. LABORATORY: WBCs have increased to 19,600 with stable hemoglobin and hematocrit of 14.7 and 45.3. She does have a left shift on her digital. Electrolytes are basically within normal limits. BUN slightly elevated at 28. All other labs and films have been reviewed via the EMR. ASSESSMENT: 1. Exacerbation of chronic obstructive pulmonary disease with resulting left lower lobe pneumonia secondary to recent viral pneumonitis with positive parainfluenza. 2. History of hypertension. 3. History of gastroesophageal reflux disease. 4. History of microscopic colitis. 5. Osteoporosis. 6. Iron-deficiency anemia having previously been on iron infusions. PLAN: We will continue present supportive care. For some reason, they did not do an O2 qualify study yesterday, so I have reordered that today. I have discontinued her fluids and encouraged her to ambulate in the hallway. I have repeated her lab in the morning. She may benefit from pulmonary rehab after discharge. She will also need close followup with Dr. Marcus. We will send her home on some oral antibiotics with an oral steroid taper. We will continue to monitor the patient closely and follow as needed. #[id number] [facility]
[2018-11-01] MEDS ORDERED: SODIUM CHL 0.9% 50ML MIN-BAG+ 0 ML IVPB ONE (14:59)
[2018-11-01] MEDS ORDERED: cefTRIAXone SODIUM 1 GM VIAL ONE (15:00)
[2018-11-01] MEDS: cefTRIAXone SODIUM 1 GM in SODIUM CHL 0.9% 50ML MIN-BAG+ 50 ML IVPB SCH (15:03)
[2018-11-01] MEDS ORDERED: SODIUM CHL 0.9% 50ML MIN-BAG+ 50 ML IVPB ONE (15:06)
[2018-11-01] MEDS ORDERED: SODIUM CHLORIDE 0.9% 250ML 250 ML ONE (15:45)
[2018-11-01] MEDS ORDERED: AZITHROMYCIN IV 500 MG VIAL IVPB ONE (15:47)
[2018-11-01] MEDS: AZITHROMYCIN IV 500 MG in SODIUM CHLORIDE 0.9% 250ML 250 ML IVPB SCH (15:51)
[2018-11-01] MEDS: ENOXAPARIN SODIUM 40 MG/0.4 ML SYG SUBCU SCH (20:52)
[2018-11-02] MEDS: PANTOPRAZOLE SODIUM IV 40 MG VIAL IV SCH (06:07)
[2018-11-02 06:12] VITALS: O2SAT 95
[2018-11-02] MEDS: IPRATROPIUM/ALBUTEROL 3 ML VIAL NEB SCH ×2 (08:34→11:51)
[2018-11-02] MEDS: BUDESONIDE NEBS 0.5 MG/2 ML VIAL NEB SCH (08:34)
[2018-11-02] MEDS ORDERED: AZITHROMYCIN 250 MG TAB PO ONE ×2 (09:18→11:41)
[2018-11-02] MEDS ORDERED: cefTRIAXone SODIUM 1 GM in SODIUM CHL 0.9% 50ML MIN-BAG+ 50 ML IVPB ONE (09:19)
[2018-11-02] MEDS: predniSONE 20 MG TAB PO SCH (09:30)
[2018-11-02] MEDS ORDERED: SODIUM CHLORIDE 0.9% 250ML 0 ML ONE (11:39)
[2018-11-02] MEDS ORDERED: SODIUM CHL 0.9% 50ML MIN-BAG+ 50 ML IVPB ONE (11:39)
[2018-11-02] MEDS ORDERED: cefTRIAXone SODIUM 1 GM VIAL ONE (11:39)
[2018-11-02] MEDS ORDERED: AZITHROMYCIN IV 500 MG VIAL IVPB ONE (11:40)
[2018-11-02 12:30] VITALS: BP 128/78; TEMP 98.6
--- NOTE | 2018-11-02 20:37 | DS ---
SUPERVISING PHYSICIAN: Fredrick Jameson M.D. DISCHARGE DIAGNOSIS: 1. Exacerbation of chronic obstructive pulmonary disease with resulting left lower lobe pneumonia secondary to recent viral pneumonitis with positive parainfluenza. 2. History of hypertension. 3. History of gastroesophageal reflux disease. 4. History of microscopic colitis. 5. Osteoporosis. 6. Iron-deficiency anemia having been on previous iron infusions. HISTORY OF PRESENT ILLNESS: This is a 73 year-old female patient who has a history of chronic obstructive pulmonary disease but has not been O2 dependent at home. The Sunday prior to her admission she went to [facility] walk-in clinic for upper respiratory type symptoms as well as exacerbation of COPD. She was started on Levaquin and breathing treatments. She failed to get any improvement and presented back to Dr. Marcus' office for further evaluation. On assessment, she was showing an oxygen saturation of 88% on room air. She was given a breathing treatment and only improved to 90%. After ambulation, she dropped down to 88%. A chest x-ray was done and showed COPD changes but no acute consolidative processes. BioFire testing done that showed that she had parainfluenza. Initially she was given instructions that she needed to be admitted but opted not to be admitted to the hospital and to go home with treatment. She continued her antibiotics as well as some breathing treatments. Shortly thereafter she became so short of breath with an acute decline and she agreed to be admitted for further treatment of exacerbation of COPD secondary to parainfluenza. She was admitted directly to the hospital in stable condition. HOSPITAL COURSE: The patient was admitted to the hospital for ongoing aggressive pulmonary hygiene as well as for community acquired pneumonia. She was given azithromycin and Rocephin as well as IV steroids. She was also put on DVT prophylaxis and had judicious fluids for a day. She remained quite hypoxic, especially with any exertion. Ambulation study showed that she was 88% on room air. After the patient walked in the hallway her oxygen saturations dropped to 82%. The patient was placed back on oxygen at 5 liters per minute and obtained recovery saturation of 93%. The patient was then placed on 2 liters of O2 and she was 91% at rest. She slowly improved over the next 24 hours but her WBCs did elevated to 19,600. She had been on steroids for several days prior to the elevated white count. IV steroids were tapered to oral steroids. Home oxygen was ordered and she will be discharged home today in stable condition. LABORATORY: Initial WBCs were 9,200 and were as high as 19,600 and today are 16,700. Hemoglobin and hematocrit were stable at 14.2 and 43.3. She did have a left shift on her differential this morning of 79.2% neutrophils. Electrolytes basically remained within normal limits during her hospital stay. BNP was 118. RADIOLOGY: Followup x-ray at the hospital showed no acute findings. DISCHARGE PLAN: The patient will be discharged home in stable condition. She is to resume her previous diet. She is to increase her activity as tolerated. She is to followup with Dr. Marcus on 11/07/18 at 11:15. She received her last dosage of Zithromax in the hospital and she will be sent home on 7 additional days of Cefdinir. She also has a prednisone taper at home as well as Albuterol nebs at home. She has been instructed to use her Albuterol nebs 4 times daily and every 2 to 4 hours as needed for shortness of breath, coughing or wheezing. She does not believe she has had an exacerbation of her COPD and she may benefit from some pulmonary rehab upon discharge. 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 She is to call Dr. Marcus' office or return to the hospital for any problems or complications. DISCHARGE MEDICATIONS: 1. Vitamin E. 2. Folic acid. 3. Cyanocobalamin. 4. Calcium. 5. Vitamin C. 6. Amlodipine/Benazepril. 7. Cefdinir. 8. Albuterol sulfate. 9. Prednisone steroid taper. #[id number] [facility]
== END 2018-11-02 12:25 | disposition home or self-care (01) | DRG 190 ==
LOC: MS 12:50
PROVIDERS: ADMIT Nurse Practitioner Family; ATTEND Nurse Practitioner Acute Care
DX: J44.1 Chronic obstructive pulmonary disease with (acute) exacerbation (principal); J12.2 Parainfluenza virus pneumonia; J44.0 Chronic obstructive pulmonary disease with (acute) lower respiratory infection; I10 Essential (primary) hypertension; K21.9 Gastro-esophageal reflux disease without esophagitis; M81.0 Age-related osteoporosis without current pathological fracture; D50.9 Iron deficiency anemia, unspecified; R09.02 Hypoxemia; G47.00 Insomnia, unspecified; F17.210 Nicotine dependence, cigarettes, uncomplicated; Z88.8 Allergy status to other drugs, medicaments and biological substances; Z79.899 Other long term (current) drug therapy

== ENCOUNTER → 2019-03-17 | Outpatient (CLI) | payer MEDICARE, OTHER ==
--- NOTE | 2019-03-18 08:42 | CT ---
EXAM DESCRIPTION: Chest w/Contrast CLINICAL HISTORY: 73 years, Female, CEHST PAIN COMPARISON: None TECHNIQUE: Thin-section axial CT images are obtained during rapid bolus administration of IV contrast media. Reconstructed MPR images are created and reviewed as well. FINDINGS: Mild pulmonary emphysematous changes. The lungs are otherwise clear. No focal consolidation, pneumothorax, or pleural effusion. No pulmonary mass. Small three mm noncalcified pulmonary nodule within the right upper lobe (series 4 image 24). Mild left ventricular enlargement. No pericardial effusion. The great vessels are normal in caliber. Thoracic aorta measures up to 3.5 cm without evidence of aortic aneurysm or dissection. The opacified pulmonary arteries are also patent without filling defects/pulmonary embolism. No mediastinal or hilar adenopathy. No axillary lymphadenopathy. No acute osseous abnormality. No suspicious osseous lesion. Partially visualized abdomen is unremarkable. IMPRESSION: 1. No acute intrathoracic process. 2. Right upper lobe 3 mm noncalcified pulmonary nodule. If the patient is considered high risk option CT follow-up in 12 months. This exam was performed according to our departmental dose-optimization program, which includes automated exposure control, adjustment of the mA and/or kV according to patient size and/or use of iterative reconstruction technique. Electronically signed by: Murphy Gonzalez DO 03/18/2019 8:40 AM CDT
== END ==
LOC: CT 13:58
PROVIDERS: ATTEND Family Medicine
DX: I20.8 Other forms of angina pectoris (principal); R91.1 Solitary pulmonary nodule

== ENCOUNTER 2019-04-21 17:05 | Emergency (ER) | payer MEDICARE, OTHER ==
--- NOTE | 2019-04-21 17:29 | ED.PDOC ---
History of Present Illness - General Time Seen by Provider: 04/21/19 17:21 Source: patient Exam Limitations: no limitations Additional Information: Elaina Bassett is a 73-year-old female who presents to the ED with chief complaint of palpitations. She indicates she was working in the garden and her symptoms began at approximately 1515 today. Patient denies chest pain but indicates that she became very weak and lightheaded when the symptoms began. While patient's symptoms for this particular episode began acutely prior to arrival patient indicates she has felt this way on and off for the past several days. She reports no known adverse heart history. She specifically denies CAD and atrial fibrillation. Patient's only stated medical problem is hypertension and "stomach issues". Patient denies nausea, fever, vomiting, abdominal pain. Patient is otherwise asymptomatic. - History of Present Illness Allergies/Adverse Reactions: Allergies Atropine Allergy (Verified 11/12/16 11:53) Carisoprodol [From Soma] Allergy (Verified 11/12/16 11:53) Home Medications: Ambulatory Orders Ascorbic Acid [Vitamin C] 500 mg PO DAILY 04/22/15 Calcium 600 mg PO DAILY 04/22/15 Cyanocobalamin [Vitamin B12] 500 mcg PO DAILY 04/22/15 Folic Acid 1 mg PO DAILY 04/22/15 Vitamin E 400 unit PO DAILY 04/22/15 Albuterol Sulfate Nebs [Proventil Nebs] 2.5 mg INH Q4H PRN #100 vial 11/02/18 Chlorthalidone 25 mg PO DAILY 04/21/19 Review of Systems - Review of Systems Constitutional: States: weakness. Denies: chills, fever EENTM: States: no symptoms reported Respiratory: States: no symptoms reported. Denies: cough, orthopnea Cardiology: States: see HPI, palpitations. Denies: chest pain Gastrointestinal/Abdominal: States: no symptoms reported. Denies: abdominal pain, diarrhea, nausea, vomiting Genitourinary: States: no symptoms reported Musculoskeletal: States: no symptoms reported Skin: States: no symptoms reported Neurological: States: no symptoms reported. Denies: paresthesia Endocrine: States: no symptoms reported Hematologic/Lymphatic: States: no symptoms reported All other Systems: Reviewed and Negative Past Medical History (General) - Patient Medical History Hx Seizures: No Hx Stroke: No Hx Dementia: No Hx Asthma: No Hx of COPD: No Hx Cardiac Disorders: No Hx Congestive Heart Failure: No Hx Pacemaker: No Hx Hypertension: No Hx Thyroid Disease: No Hx Diabetes: No Hx Gastroesophageal Reflux: Yes Hx Renal Disease: No Hx Cancer: No Hx of HIV: No Hx Hepatitis C: No Hx MRSA: No - Vaccination History Hx Tetanus, Diphtheria Vaccination: Yes Hx Influenza Vaccination: Yes Hx Pneumococcal Vaccination: Yes - Social History Hx Tobacco Use: Yes Hx Chewing Tobacco Use: No Hx Alcohol Use: No Hx Substance Use: No Hx Substance Use Treatment: No Hx Depression: No Hx Physical Abuse: No Hx Emotional Abuse: No Hx Suspected Abuse: No - Female History Patient : No Family Medical History - Family History Mother Family History: Unknown Living Status: Hx Family Asthma: No Hx Family Congestive Heart Failure: No Hx Family Hypertension: No Hx Family Stroke: Yes Hx Cardiac Disease: No Hx Family Diabetes: No Hx Family Cancer: Yes - rectal Hx Family;Other: none Physical Exam - Physical Exam General Appearance: Alert, Comfortable, No apparent distress, Other - very thin body habitus, frail Neck: non-tender, full range of motion, supple Respiratory: chest non-tender, lungs clear, normal breath sounds, no respiratory distress Cardiovascular/Chest: no edema, no gallop, no JVD, no murmur, irregularly irregular Peripheral Pulses: radial,right: 2+, radial,left: 2+ Gastrointestinal/Abdominal: normal bowel sounds, non tender, soft Extremity: normal range of motion, non-tender, normal inspection, no pedal edema 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 04/21/19 18:52 EKG read: AFIB WITH RVR. ST DEPRESSION INF/ ANT/ LAT, T WAVE INVERSION. NEG STEMI. EKG read by Ralph Marcus MD. 04/21/19 19:28 Repeat EKG at 1759 reveals the patient is now out of RVR with a rate of 105 the patient still has T-wave depression. third EKG done at 1920 reveals the patient is now in a sinus rhythm but with frequent PVCs and continued ST and T-wave changes but no ST segment elevation. 04/21/19 19:29 The patient is feeling much better at this time and she is asymptomatic, her palpitations have relieved and she has no chest pain. Patient presented in A. fib with RVR which converted with Cardizem but she shows signs of ischemia and aspirin and Lovenox have been given. Will transfer to [place] for cardiology evaluation and care. Patient is comfortable and stable at this time and she is safe for transfer. 04/21/19 19:51 Have d/w Dr. Ang, ED physician [facility], who accepts pt ED to ED transfer. - Results/Orders Results/Orders: 04/21/19 17:30 diltiaZEM DRIP [Cardizem Drip] 125 mg Sodium Chloride 0.9% 100Ml [NS (NACL 0.9%) 100ml] 100 ml IVPB PRN EKG STAT 04/21/19 18:15 EKG STAT 04/21/19 19:05 EKG Assessment ONCE 04/21/19 19:15 EKG STAT EKG STAT EKG STAT Laboratory Results - last 24 hr 04/21/19 04/21/19 04/21/19 17:30 17:30 17:30 PT 9.6 INR 0.96 Sodium 135 Potassium 3.1 L Chloride 96 L Carbon Dioxide 22 Anion Gap 20.1 H BUN 37 H Creatinine 1.34 H BUN/Creatinine Ratio 27.6 H Random Glucose 152 H Serum Osmolality 281.8 Calcium 9.6 Total Bilirubin 0.5 AST 31 ALT 17 Alkaline Phosphatase 53 Troponin I 0.04 Serum Total Protein 7.3 Albumin 4.2 Globulin 3.1 Albumin/Globulin Ratio 1.4 Departure - Departure Clinical Impression: Atrial fibrillation with RVR, Acute coronary syndrome, Hypokalemia Disposition: Transfer to Hospital Condition: Fair Home Medications: Ambulatory Orders Ascorbic Acid [Vitamin C] 500 mg PO DAILY 04/22/15 Calcium 600 mg PO DAILY 04/22/15 Cyanocobalamin [Vitamin B12] 500 mcg PO DAILY 04/22/15 Folic Acid 1 mg PO DAILY 04/22/15 Vitamin E 400 unit PO DAILY 04/22/15 Albuterol Sulfate Nebs [Proventil Nebs] 2.5 mg INH Q4H PRN #100 vial 11/02/18 Chlorthalidone 25 mg PO DAILY 04/21/19 Critical Care Note - Critical Care Note Total Time (mins): 30 Transfer to Outside Facility - Transfer Information Decision to Transfer Date: 04/21/19 Decision to Transfer Time: 19:54 Reason for Transfer: specialized care not available Accepting Provider:: Dr. Ang Accepting Facility: [facility]
[2019-04-21] MEDS ORDERED: SODIUM CHLORIDE 0.9% 100ML 100 ML IVPB ONE ×2 (17:30→17:47)
[2019-04-21] MEDS ORDERED: diltiaZEM DRIP 125 MG in SODIUM CHLORIDE 0.9% 100ML 100 ML IVPB SCH (17:30)
[2019-04-21] MEDS ORDERED: diltiaZEM DRIP 125 MG/25 ML VIAL IVPB ONE ×2 (17:30→17:47)
--- NOTE | 2019-04-21 17:42 | RAD ---
EXAM DESCRIPTION: Chest,1 View CLINICAL HISTORY: 73 years Female, SOB COMPARISON: Previous study October 31, 2018 TECHNIQUE: AP portable chest. FINDINGS: Heart size is normal with normal pulmonary vascularity. Plate and screws in lower C-spine. No consolidating infiltrate. Lungs appear hyperexpanded. No pulmonary mass or worrisome nodule. No pneumothorax or pleural effusion. Bones are unremarkable. IMPRESSION: No consolidating infiltrate. Electronically signed by: Yoandy Watson MD 04/21/2019 5:40 PM CDT
[2019-04-21 18:01] VITALS: TEMP 97.4
[2019-04-21] MEDS ORDERED: ASPIRIN (CHEWABLE) 81 MG TAB PO ONE (18:49)
[2019-04-21] MEDS ORDERED: POTASSIUM CHLORIDE 20 MEQ TAB PO ONE (19:08)
[2019-04-21] MEDS ORDERED: ENOXAPARIN SODIUM 60 MG/0.6 ML SYG SUBCU ONE (20:07)
[2019-04-21 20:35] VITALS: BP 167/101; O2SAT 96
== END 2019-04-21 20:50 | disposition short-term general hospital (02) ==
LOC: ER 17:05
DX: I48.91 Unspecified atrial fibrillation (principal); R00.0 Tachycardia, unspecified; I24.9 Acute ischemic heart disease, unspecified; E87.6 Hypokalemia; I10 Essential (primary) hypertension; K21.9 Gastro-esophageal reflux disease without esophagitis; Z87.891 Personal history of nicotine dependence; Z79.899 Other long term (current) drug therapy; Z88.8 Allergy status to other drugs, medicaments and biological substances
CPT/HCPCS: 36415; 71045; 80053; 84484; 85610; 93005; J1650; J7050

== ENCOUNTER → 2019-05-13 | Outpatient (CLI) | payer MEDICARE, OTHER | LOC: RESP 14:54 | PROVIDERS: ATTEND Family Medicine | DX: I48.0 Paroxysmal atrial fibrillation (principal) ==

== ENCOUNTER → 2019-05-23 | Outpatient (CLI) | payer MEDICARE, OTHER ==
--- NOTE | 2019-05-26 17:44 | MAM ---
EXAM DESCRIPTION: 3D Screening BILATERAL : Digital Mammography. CLINICAL HISTORY: 73 years Female SCREENING .. No complaints. No personal history of breast cancer. Remote family history of breast cancer. Menarche unknown. Childbirth 16 years. Postmenopausal at age 25. HRT 5 or more years ago. Bilateral benign breast biopsy. Lifetime risk of developing breast cancer (Tyrer-Cuzick model)(%): 4.4. COMPARISON: Bilateral screening digital breast tomosynthesis 21 May 2018.. 01 May 2017. TECHNIQUE: Bilateral CC and MLO projection full-field images, digital tomosynthesis mammographic technique. Bilateral digital 2-D full-field MLO images. CAD not available for tomosynthesis or 2-D images. FINDINGS: The breast parenchymal density pattern is: Heterogeneously dense breast tissue, which may obscure small masses. No skin thickening or nipple retraction. Heterogeneous calcifications interspersed to the densities fibroglandular tissues bilaterally. Bilateral skin moles. Heterogeneous microcalcifications associated with an elongated region of fibroglandular tissue in the lateral breast approximately 9:00 posterior third and 10 cm from the nipple. Microcalcifications have increased since the prior study. Fibroglandular density in the left breast at the 12:00 position approximately 8 cm from the nipple also associated with numerous microcalcifications.. IMPRESSION: BI-RADS CATEGORY: 0 - INCOMPLETE- Need additional imaging evaluation. FOLLOW-UP: Recall for additional imaging: Bilateral spot magnification 2-D regions of interest CC projection. Bilateral LM 2-D full field 2-D and tomosynthesis. Optional follow-up directed breast ultrasound bilaterally.. Written communication concerning the IMPRESSION and Follow-up, will be mailed to the patient and referring health care provider. Electronically signed by: Tim Mendiola MD 05/26/2019 5:42 PM [facility]
== END ==
LOC: MAMMO 10:30
PROVIDERS: ATTEND Family Medicine
DX: Z12.31 Encounter for screening mammogram for malignant neoplasm of breast (principal)

== ENCOUNTER 2019-06-13 15:05 | Observation (INO) | payer MEDICARE, OTHER ==
--- NOTE | 2019-06-13 16:05 | RAD ---
EXAM DESCRIPTION: Chest,2 Views CLINICAL HISTORY: sob COMPARISON: Previous study April 21, 2019 TECHNIQUE: PA/lateral FINDINGS: Plate and screws in the lower C-spine. There is no acute appearing cardiac or pulmonary abnormality. Heart size is normal with normal pulmonary vascularity. No pneumothorax. Small bilateral pleural effusions. Lungs are clear with no consolidating infiltrate. Lateral view shows intact sternum and T-spine. IMPRESSION: No consolidating infiltrate. Small bilateral pleural effusions. Electronically signed by: Yoandy Watson MD 06/13/2019 4:04 PM [facility]
[2019-06-13] MEDS ORDERED: predniSONE 20 MG TAB PO ONE (17:19)
[2019-06-13] MEDS ORDERED: diphenhydrAMINE HCL 25 MG CAP PO ONE (17:19)
[2019-06-13] MEDS ORDERED: ACETAMINOPHEN 500 MG TAB PO ONE (17:19)
[2019-06-13] MEDS ORDERED: PANTOPRAZOLE SODIUM IV 40 MG VIAL IV ONE (17:19)
[2019-06-13] MEDS ORDERED: SUCRALFATE 1 GM/10 ML 1 GM UD PO ONE (17:19)
--- NOTE | 2019-06-13 17:52 | ED.PDOC ---
History of Present Illness - General Chief Complaint: Cardiovascular Problem Stated Complaint: Palpitations, weakness Time Seen by Provider: 06/13/19 15:24 Source: patient Exam Limitations: no limitations - History of Present Illness Initial Comments: the patient is a 73-year-old female presenting to the emergency room secondary to a feeling of mild palpitations and increased dyspnea on exertion. Symptoms have been a little more progressive over the last week to week and a half. Apparently a couple of weeks ago the patient was diagnosed with new atrial fibrillation and was in the hospital for one night. She was started on metoprolol and liquids. She has been on those medications since that time. Vital signs are actually normal here. The patient is alert and oriented and in no distress. On further questioning the patient has apparently been having dark stools for the last 3 months. The patient was scoped with Dr. Morales in January 2018. She thinks that he did a upper endoscopy as well as lower endoscopy. Her diagnosis was microscopic colitis at the time. No previous history of any GI bleed. No frankly bloody stools. No vomiting of any blood. No easy bruising or bleeding of the gums. No syncope or near-syncope. No chest pain. She is currently actually back in a normal sinus rhythm. Timing/Duration: unsure Severity: mild Improving Factors: nothing Worsening Factors: nothing Associated Symptoms: malaise, shortness of breath Allergies/Adverse Reactions: Allergies Atropine Allergy (Verified 11/12/16 11:53) Carisoprodol [From Soma] Allergy (Verified 11/12/16 11:53) Home Medications: Ambulatory Orders Ascorbic Acid [Vitamin C] 500 mg PO DAILY 04/22/15 Calcium 600 mg PO DAILY 04/22/15 Cyanocobalamin [Vitamin B12] 500 mcg PO DAILY 04/22/15 Folic Acid 1 mg PO DAILY 04/22/15 Vitamin E 400 unit PO DAILY 04/22/15 Albuterol Sulfate Nebs [Proventil Nebs] 2.5 mg INH Q4H PRN #100 vial 11/02/18 Chlorthalidone 25 mg PO DAILY 04/21/19 Review of Systems - Review of Systems Constitutional: States: malaise EENTM: States: no symptoms reported Respiratory: States: short of breath Cardiology: States: palpitations Gastrointestinal/Abdominal: States: no symptoms reported Genitourinary: States: no symptoms reported Musculoskeletal: States: no symptoms reported Skin: States: no symptoms reported Neurological: States: no symptoms reported Endocrine: States: no symptoms reported All other Systems: No Change from Baseline Past Medical History (General) - Patient Medical History Hx Seizures: No Hx Stroke: No Hx Dementia: No Hx Asthma: No Hx of COPD: No Hx Cardiac Disorders: Yes - Atrial fib (dx'ed 05/2019) Hx Congestive Heart Failure: No Hx Pacemaker: No Hx Hypertension: No Hx Thyroid Disease: No Hx Diabetes: No Hx Gastroesophageal Reflux: Yes Hx Renal Disease: No Hx Cancer: No Hx of HIV: No Hx Hepatitis C: No Hx MRSA: No - Vaccination History Hx Tetanus, Diphtheria Vaccination: Yes Hx Influenza Vaccination: Yes - 2019 Hx Pneumococcal Vaccination: Yes - Social History Hx Tobacco Use: Yes - Quit 10/2018 Hx Chewing Tobacco Use: No Hx Alcohol Use: No Hx Substance Use: No Hx Substance Use Treatment: No Hx Depression: No Hx Physical Abuse: No Hx Emotional Abuse: No Hx Suspected Abuse: No - Female History Patient : No Family Medical History - Family History Mother Family History: Unknown Living Status: Hx Family Asthma: No Hx Family Congestive Heart Failure: No Hx Family Hypertension: No Hx Family Stroke: Yes Hx Cardiac Disease: No Hx Family Diabetes: No Hx Family Cancer: Yes - rectal Hx Family;Other: none Physical Exam - Physical Exam General Appearance: Alert, Anxious, No apparent distress Eye Exam: bilateral normal Ears, Nose, Throat: hearing grossly normal, normal ENT inspection Neck: full range of motion, supple Respiratory: lungs clear, normal breath sounds, no respiratory distress, no accessory muscle use Cardiovascular/Chest: normal peripheral pulses, regular rate, rhythm, no edema Peripheral Pulses: radial,right: 2+, radial,left: 2+, dorsalis pedis,right: 2+, dorsalis pedis,left: 2+ Gastrointestinal/Abdominal: non tender, soft Rectal Exam: deferred Back Exam: no CVA tenderness, no vertebral tenderness Extremity: normal range of motion, non-tender, normal inspection, no pedal ed ayana, normal capillary refill 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 This is most likely due to anemia. It appears that the patient has likely had a longer-term undiagnosed GI bleed for at least the last several months. This was likely exacerbated when the patient was put on eliquis a few weeks ago. the patient has back in a normal sinus rhythm. Vital signs are stable. The patient will be admitted to have 2 units transfused. She has agreed to this. Assuming that her H&H stabilize, she will likely need endoscopy as an outpatient. She will have to discontinue the Eliquis. CT scan of the abdomen and pelvis with contrast would also be warranted on this patient once her hemoglobin and hematocrit levels have improved, to reduce the risk of contrast nephropathy. the patient is receiving acid reducing medications as well in case the slow bleeding is coming from the upper intestinal tract. Admit overnight for transfusion for symptomatic anemia. - Results/Orders Results/Orders: chest x-ray showschest x-ray shows very small bilateral pleural effusions. EKG shows nonspecific ST segment and T-wave abnormalities that are scattered. Normal sinus rhythm at 76 bpm. Normal R-wave progression. Normal axis. Normal QT interval. Laboratory Tests 06/13/19 06/13/19 06/13/19 16:10 16:10 16:10 WBC 8.7 RBC 2.41 L Hgb 6.7 L* Hct 21.2 L MCV 88.3 MCH 27.9 MCHC 31.6 L RDW 16.5 H Plt Count 432 H MPV 9.5 Absolute Neuts (auto) 6.10 Absolute Lymphs (auto) 1.90 Absolute Monos (auto) 0.60 Absolute Eos (auto) 0.10 Absolute Basos (auto) 0.10 Neutrophils % 69.5 Lymphocytes % 21.5 Monocytes % 7.1 Eosinophils % 1.0 Basophils % 0.9 PT 11.1 H INR 1.11 PTT (SP) 21.3 L Sodium 142 Potassium 3.5 L Chloride 108 Carbon Dioxide 26 Anion Gap 11.5 L BUN 36 H Creatinine 1.23 BUN/Creatinine Ratio 29.3 H Random Glucose 107 H Serum Osmolality 291.9 Calcium 8.8 Magnesium 2.0 Total Bilirubin 0.4 AST 24 ALT 13 Alkaline Phosphatase 54 Creatine Kinase 72 CK-MB (CK-2) 2.6 CK-MB (CK-2) % Not Reportable Troponin I 0.02 B-Natriuretic Peptide 228.0 H* Serum Total Protein 6.5 Albumin 3.8 Globulin 2.7 Albumin/Globulin Ratio 1.4 TSH 2.52 Crossmatch 06/13/19 16:10 WBC RBC Hgb Hct MCV MCH MCHC RDW Plt Count MPV Absolute Neuts (auto) Absolute Lymphs (auto) Absolute Monos (auto) Absolute Eos (auto) Absolute Basos (auto) Neutrophils % Lymphocytes % Monocytes % Eosinophils % Basophils % PT INR PTT (SP) Sodium Potassium Chloride Carbon Dioxide Anion Gap BUN Creatinine BUN/Creatinine Ratio Random Glucose Serum Osmolality Calcium Magnesium Total Bilirubin AST ALT Alkaline Phosphatase Creatine Kinase CK-MB (CK-2) CK-MB (CK-2) % Troponin I B-Natriuretic Peptide Serum Total Protein Albumin Globulin Albumin/Globulin Ratio TSH Crossmatch See Detail Departure - Departure Clinical Impression: Symptomatic anemia GI bleed Qualifiers: GI bleed type/associated pathology: melena Qualified Code(s): K92.1 - Melena Disposition: Admit Patient Departure Forms: ED Discharge - Pt. Copy, Patient Portal Self Enrollment Referrals: Shalom Marcus MD [Primary Care Provider] - 1-2 Weeks Home Medications: Ambulatory Orders Ascorbic Acid [Vitamin C] 500 mg PO DAILY 04/22/15 Calcium 600 mg PO DAILY 04/22/15 Cyanocobalamin [Vitamin B12] 500 mcg PO DAILY 04/22/15 Folic Acid 1 mg PO DAILY 04/22/15 Vitamin E 400 unit PO DAILY 04/22/15 Albuterol Sulfate Nebs [Proventil Nebs] 2.5 mg INH Q4H PRN #100 vial 11/02/18 Chlorthalidone 25 mg PO DAILY 04/21/19 Decision To Admit - Decistion To Admit Decision to Admit Reason: Medical Nature Decision to Admit Date: 06/13/19 Decision to Admit Time: 17:59
[2019-06-13] MEDS ORDERED: SODIUM CHLORIDE 0.9% 500ML 500 ML ONE (19:32)
--- NOTE | 2019-06-13 19:53 | HP ---
SUPERVISING PHYSICIAN: Shalom Marcus M.D. CHIEF COMPLAINT: Weakness. HISTORY OF PRESENT ILLNESS: Ms Bassett is a 73 year-old female patient who was in the Emergency Room today complaining of some mild palpitations and increased dyspnea on exertion. She noted her symptoms have been a little more progressive over the last week and a half. She was diagnosed a couple of weeks ago with new onset of atrial fibrillation, stayed one night in the hospital and started on metoprolol and Eliquis. She was not showing any distress on admission and noted she had been having some dark stools for the past 3 months. She last had a EGD done in January [address] Morales as well as a lower colonoscopy and diagnosed with microscopic colitis. She has had no history of any GI bleed, denies any aaron bleeding or bloody stools. She has had no nausea or vomiting. She denies any easy bruising or bleeding. She has had no syncopal episodes. She denied any chest pains. In the Emergency Room she was actually noted to be in sinus rhythm. Her initial laboratory studies did show she was anemic with 6.7 hemoglobin and 21.2 hematocrit. Differential showed to be without a left shift and normal white count at 8,700 Chemistries showed just a mildly low potassium at 3.5, BUN slightly elevated at 36 with creatinine of 1.23. Liver functions all within normal limits and elevated BNP of 228. Chest x-ray in the Emergency Room for a 2-view chest showed no consolidative infiltrate, just a small bilateral pleural effusion. Given that there were no obvious episodes of aaron bleeding and this appears to be a chronic anemia rather than acute loss, Dr. Dayo Gill, Emergency Room physician requested the patient be admitted for transfusion of blood and further evaluation overnight. PAST MEDICAL HISTORY: 1. Chronic obstructive pulmonary disease. 2. Gastroesophageal reflux disease. 3. Hypertension. 4. Microscopic colitis. 5. Osteoporosis. 6. History of iron deficiency anemia treated in the past with iron infusions. 7. Chronic insomnia. PAST SURGICAL HISTORY: 1. Appendectomy in 5. 2. Cholecystectomy in 1970. 3. Hysterectomy in 1969. 4. Tonsils and adenoids as a child. 5. Breast biopsy 5 times with benign findings. 6. Hemorrhoidectomy. 7. Laminectomy of the cervical neck in 1990. HOME MEDICATIONS: 1. Potassium 99 mg daily. 2. Lopressor 25 mg b.i.d. 3. Folic acid 400 mg daily. 4. Vitamin B12, 1000 mcg daily. 5. Refresh Plus eyedrops as needed. 6. Calcium and vitamin D supplement, 1 tablet b.i.d. 7. Aspirin 81 mg daily. 8. Eliquis 5 mg b.i.d. 9. Ascorbic acid 500 mg daily. ALLERGIES: ATROPINE AND CARISOPRODOL. REVIEW OF SYSTEMS: CONSTITUTIONAL: Positive for general malaise. Negative for fevers, chills or rigors. HEENT: Negative for headaches, sore throats, earaches, nasal congestion, vision changes. RESPIRATORY: As noted in history of present illness. Some shortness of breath with dyspnea but no wheezing or coughing. CARDIOVASCULAR: Palpitations but not any actual chest pains or syncopal episodes. GASTROINTESTINAL: Negative for nausea, vomiting, diarrhea, constipation or abdominal pain. GENITOURINARY: Denied dysuria, hematuria or polyuria. MUSCULOSKELETAL: Denied joint swelling, arthralgias. SKIN: No lesions, rashes, moles or unexplained changes. NEUROLOGIC: No headaches, vision changes, syncopal episodes, ataxia or other neurological deficits. HEMATOLOGIC: Denies easy bruising, bleeding, no reported transfusion reactions. PHYSICAL EXAMINATION: VITAL SIGNS: Temperature 98, pulse 72, blood pressure 172/76, respirations 16, oxygen saturation 96% on room air. Admission weight 53.3 kg. GENERAL: The patient is resting comfortable and appears to be in no acute distress. She was alert. HEENT: Tympanic membranes are clear bilaterally. Oropharynx was pink and moist without any lesions. NECK: Supple, non-tender. Full range of motion. CHEST: Lung sounds are clear to auscultation without obvious notable rhonchi, rales, or wheezes.. CARDIOVASCULAR: Regular rate and rhythm without appreciable murmurs, gallops, or rubs. ABDOMEN: Soft, non-tender. Positive bowel sounds. EXTREMITIES: Without any edema. RECTAL: Exam deferred. BACK: No CVA or vertebral tenderness. NEUROLOGIC: Cranial nerves II through XII are grossly intact. She is alert and oriented times three. SKIN: Warm, pink and dry. LABORATORY: White count within normal limits at 8,700 with a left shift. Hemoglobin 6.7, hematocrit 212, platelet count 432,000. Coagulation studies showed a PT of 11.1, PTT 21.3 with patient being on Eliquis. Chemistry showed just a mildly potassium at 3.5. BUN up to 36, creatinine 1.33 with liver functions all within normal limits. Glucose 107, troponin 0.02, BNP was slightly elevated at 228. RADIOLOGY: 2-view chest x-ray per radiology interpretation showed no consolidative infiltrates, small bilateral pleural effusion was noted. ASSESSMENT: 1. Symptomatic anemia likely chronic with no overt evidence of acute loss with having a history of iron-deficiency anemia treated with iron infusions. 2. Mild electrolyte imbalance with hypokalemia. 3. History of microscopic colitis with EGD and previous colonoscopy in 2018. 4. Gastroesophageal reflux disease. 5. Chronic obstructive pulmonary disease without any signs of exacerbation. 6. Chronic insomnia. PLAN: Ms. Bassett is going to be placed in observation for symptomatic anemia to be transfused 2 units of packed red blood cells. Will give Lasix after the second unit. Will plan to recheck hemoglobin and hematocrit in the morning. Will hold her Eliquis at this point as she is showing to be in a sinus rhythm. Will review other medications and restart those as appropriate to care. I anticipate her length of stay to be at least 1 to 2 days. Will saline-lock her after the blood. Repeat labs in the morning and anticipate that she will discharge later tomorrow after repeat hemoglobin and hematocrit in the morning and then later in the afternoon just to insure the hemoglobin and hematocrit are staying stable. Until the, we will continue to monitor and treat as needed. #[id number] MTDD
[2019-06-13] MEDS ORDERED: METOPROLOL TARTRATE 25 MG TAB PO SCH (21:00)
[2019-06-13] MEDS ORDERED: ONDANSETRON INJ 4 MG/2 ML VIAL IV PRN (21:02)
[2019-06-13] MEDS ORDERED: ACETAMINOPHEN 325 MG TAB PO PRN (21:02)
[2019-06-13] MEDS ORDERED: SODIUM CHLORIDE 0.9% (FLUSH) 10 ML SYG IV PRN (21:02)
[2019-06-13] MEDS ORDERED: ALUM & MAG HYDROX-SIMETHICONE 30 ML UD PO PRN (21:02)
[2019-06-13] MEDS ORDERED: MAGNESIUM HYDROXIDE 30 ML UD PO PRN (21:02)
[2019-06-13] MEDS ORDERED: IV SET AND CAP CHANGE INJ INJ SCH (21:30)
[2019-06-14] MEDS ORDERED: FUROSEMIDE INJ 40 MG/4 ML VIAL IV ONE (05:00)
[2019-06-14 08:17] VITALS: BP 150/80; TEMP 97.4; O2SAT 93
[2019-06-14] MEDS ORDERED: METOPROLOL TARTRATE 25 MG TAB PO SCH (09:00)
[2019-06-14] MEDS ORDERED: APIXABAN 5 MG TAB PO SCH (09:00)
[2019-06-14] MEDS ORDERED: FOLIC ACID 1 MG TAB PO SCH (09:00)
--- NOTE | 2019-06-17 15:05 | DS ---
SUPERVISING PHYSICIAN: Shalom Marcus MD DATE OF ADMISSION: 06/13/19 DATE OF DISCHARGE: 06/14/19 ADMISSION DIAGNOSIS: 1. Symptomatic anemia likely chronic with no overt evidence of acute loss with having a history of iron-deficiency anemia treated with iron infusions. 2. Mild electrolyte imbalance with hypokalemia. 3. History of microscopic colitis with EGD and previous colonoscopy in 2018. 4. Gastroesophageal reflux disease. 5. Chronic obstructive pulmonary disease without any signs of exacerbation. 6. Chronic insomnia. DISCHARGE DIAGNOSIS: 1. Symptomatic anemia likely chronic with no overt evidence of acute loss with having a history of iron-deficiency anemia treated with iron infusions, stable after 2 units of packed red blood cells with no complicating factors. 2. Mild electrolyte imbalance with hypokalemia, resolved and return to baseline. 3. History of microscopic colitis with EGD and previous colonoscopy in 2018. 4. Gastroesophageal reflux disease. 5. Chronic obstructive pulmonary disease without any signs of exacerbation. 6. Chronic insomnia. CHIEF COMPLAINT: Weakness. HISTORY OF PRESENT ILLNESS: Ms Bassett is a 73 year-old female patient who was in the Emergency Room today complaining of some mild palpitations and increased dyspnea on exertion. She noted her symptoms have been a little more progressive over the last week and a half. She was diagnosed a couple of weeks ago with new onset of atrial fibrillation, stayed one night in the hospital and started on metoprolol and Eliquis. She was not showing any distress on admission and noted she had been having some dark stools for the past 3 months. She last had a EGD done in January of [address] Morales as well as a lower colonoscopy and diagnosed with microscopic colitis. She has had no history of any GI bleed, denies any aaron bleeding or bloody stools. She has had no nausea or vomiting. She denies any easy bruising or bleeding. She has had no syncopal episodes. She denied any chest pains. In the Emergency Room she was actually noted to be in sinus rhythm. Her initial laboratory studies did show she was anemic with 6.7 hemoglobin and 21.2 hematocrit. Differential showed to be without a left shift and normal white count at 8,700 Chemistries showed just a mildly low potassium at 3.5, BUN slightly elevated at 36 with creatinine of 1.23. Liver functions all within normal limits and elevated BNP of 228. Chest x-ray in the Emergency Room for a 2-view chest showed no consolidative infiltrate, just a small bilateral pleural effusion. Given that there were no obvious episodes of aaron bleeding and this appears to be a chronic anemia rather than acute loss, Dr. Dayo Gill, Emergency Room physician requested the patient be admitted for transfusion of blood and further evaluation overnight. PAST MEDICAL HISTORY: 1. Chronic obstructive pulmonary disease. 2. Gastroesophageal reflux disease. 3. Hypertension. 4. Microscopic colitis. 5. Osteoporosis. 6. History of iron deficiency anemia treated in the past with iron infusions. 7. Chronic insomnia. PAST SURGICAL HISTORY: 1. Appendectomy in 1954. 2. Cholecystectomy in 1970. 3. Hysterectomy in 1969. 4. Tonsils and adenoids as a child. 5. Breast biopsy 5 times with benign findings. 6. Hemorrhoidectomy. 7. Laminectomy of the cervical neck in 1990. HOME MEDICATIONS: 1. Potassium 99 mg daily. 2. Lopressor 25 mg b.i.d. 3. Folic acid 400 mg daily. 4. Vitamin B12, 1000 mcg daily. 5. Refresh Plus eyedrops as needed. 6. Calcium and vitamin D supplement, 1 tablet b.i.d. 7. Aspirin 81 mg daily. 8. Eliquis 5 mg b.i.d. 9. Ascorbic acid 500 mg daily. ALLERGIES: ATROPINE AND CARISOPRODOL. REVIEW OF SYSTEMS: CONSTITUTIONAL: Positive for general malaise. Negative for fevers, chills or rigors. HEENT: Negative for headaches, sore throats, earaches, nasal congestion, vision changes. RESPIRATORY: As noted in history of present illness. Some shortness of breath with dyspnea but no wheezing or coughing. CARDIOVASCULAR: Palpitations but not any actual chest pains or syncopal episodes. GASTROINTESTINAL: Negative for nausea, vomiting, diarrhea, constipation or abdominal pain. GENITOURINARY: Denied dysuria, hematuria or polyuria. MUSCULOSKELETAL: Denied joint swelling, arthralgias. SKIN: No lesions, rashes, moles or unexplained changes. NEUROLOGIC: No headaches, vision changes, syncopal episodes, ataxia or other neurological deficits. HEMATOLOGIC: Denies easy bruising, bleeding, no reported transfusion reactions. PHYSICAL EXAMINATION: VITAL SIGNS: Temperature 98, pulse 72, blood pressure 172/76, respirations 16, oxygen saturation 96% on room air. Admission weight 53.3 kg. GENERAL: The patient is resting comfortable and appears to be in no acute distress. She was alert. HEENT: Tympanic membranes are clear bilaterally. Oropharynx was pink and moist without any lesions. NECK: Supple, non-tender. Full range of motion. CHEST: Lung sounds are clear to auscultation without obvious notable rhonchi, rales, or wheezes.. CARDIOVASCULAR: Regular rate and rhythm without appreciable murmurs, gallops, or rubs. ABDOMEN: Soft, non-tender. Positive bowel sounds. EXTREMITIES: Without any edema. RECTAL: Exam deferred. BACK: No CVA or vertebral tenderness. NEUROLOGIC: Cranial nerves II through XII are grossly intact. She is alert and oriented times three. SKIN: Warm, pink and dry. LABORATORY: White count within normal limits at 8,700 with a left shift. Hemoglobin 6.7, hematocrit 212, platelet count 432,000. Coagulation studies showed a PT of 11.1, PTT 21.3 with patient being on Eliquis. Chemistry showed just a mildly potassium at 3.5. BUN up to 36, creatinine 1.33 with liver functions all within normal limits. Glucose 107, troponin 0.02, BNP was slightly elevated at 228. RADIOLOGY: 2-view chest x-ray per radiology interpretation showed no consolidative infiltrates, small bilateral pleural effusion was noted. HOSPITAL COURSE: Ms. Bassett was admitted for transfusion of 2 units of packed red blood cells overnight. She got Lasix with the second unit. She had no complicating factors and showed no evidence of acute bleeding. The patient was stable and therefore was continued with outpatient management. DISCHARGE LABORATORY: Hemoglobin 10.2, hematocrit 31.3. Chemistry showed normal electrolytes with BUN 24, creatinine 0.85. DISCHARGE ASSESSMENT: VITAL SIGNS: Temperature 98, pulse 72, blood pressure 172/76, respirations 16, oxygen saturation 96% on room air. Admission weight 53.3 kg. GENERAL: The patient is resting comfortable and appears to be in no acute distress. She was alert. HEENT: Tympanic membranes are clear bilaterally. Oropharynx was pink and moist without any lesions. NECK: Supple, nontender. Full range of motion. CHEST: Lung sounds are clear to auscultation without obvious notable rhonchi, rales, or wheezes.. CARDIOVASCULAR: Regular rate and rhythm without appreciable murmurs, gallops, or rubs. ABDOMEN: Soft, non-tender. Positive bowel sounds. EXTREMITIES: Without any edema. RECTAL: Exam deferred. BACK: No CVA or vertebral tenderness. NEUROLOGIC: Cranial nerves II through XII are grossly intact. She is alert and oriented times three. SKIN: Warm, pink and dry. PLAN: Ms. Bassett is going to be placed in observation for symptomatic anemia to be transfused 2 units of packed red blood cells. Will give Lasix after the second unit. Will plan to recheck hemoglobin and hematocrit in the morning. Will hold her Eliquis at this point as she is showing to be in a sinus rhythm. Will review other medications and restart those as appropriate to care. I anticipate her length of stay to be at least 1 to 2 days. Will saline-lock her after the blood. Repeat labs in the morning and anticipate that she will discharge later tomorrow after repeat hemoglobin and hematocrit in the morning and then later in the afternoon just to insure the hemoglobin and hematocrit are staying stable. Until the, we will continue to monitor and treat as needed. After infusion, on the morning of discharge, the patient was discharged with instruction to followup with Dr. Marcus in the next week. She was given warnings to return to the Emergency Room should she have any complicating factors or concerning symptoms. She was to resume her previous medications as prior to hospitalization. No new medications were prescribed at time of discharge. CONDITION ON DISCHARGE: Stable and improving. DISPOSITION: The patient was discharged to care of family members. #[id number] [facility]
== END 2019-06-14 08:41 | disposition home or self-care (01) ==
LOC: ER 15:05 → MS 19:52
PROVIDERS: ADMIT Nurse Practitioner Family; ATTEND Nurse Practitioner Family
DX: D50.9 Iron deficiency anemia, unspecified (principal); E87.6 Hypokalemia; E87.8 Other disorders of electrolyte and fluid balance, not elsewhere classified; K21.9 Gastro-esophageal reflux disease without esophagitis; J44.9 Chronic obstructive pulmonary disease, unspecified; F51.04 Psychophysiologic insomnia; M81.0 Age-related osteoporosis without current pathological fracture; I48.91 Unspecified atrial fibrillation; Z79.01 Long term (current) use of anticoagulants; Z79.82 Long term (current) use of aspirin; Z79.899 Other long term (current) drug therapy; Z88.8 Allergy status to other drugs, medicaments and biological substances; Z87.891 Personal history of nicotine dependence; Z90.49 Acquired absence of other specified parts of digestive tract; Z90.710 Acquired absence of both cervix and uterus
CPT/HCPCS: 96374; 96375; Q0163; J1940; J7512; J7040; 80048; 82553; 80053; 85014; 85018; 36415 ×3; 85025; 82550; 83735; 85730; 85610; 84443; 84484; 83880; 71046; 86922; 86900; 86901; 86850; 36430 ×2; 94760 ×2; 99285; 93005; G0378

== ENCOUNTER 2019-06-28 15:42 | Emergency (ER) | payer MEDICARE, OTHER ==
[2019-06-28] MEDS ORDERED: niCARdipine HCL 2.5 MG/ML AMP IVPB ONE (15:55)
--- NOTE | 2019-06-28 16:12 | ED.PDOC ---
History of Present Illness - General Chief Complaint: Cardiovascular Problem Stated Complaint: Poss Afib Time Seen by Provider: 06/28/19 15:52 Source: patient, RN notes reviewed, Vital Signs reviewed Exam Limitations: no limitations - History of Present Illness Initial Comments: this is a 73-year-old white female who presents to the emergency room today with complaints of palpitations. She states that she felt some yesterday and it increased throughout the night and then throughout the morning today. She denies having any chest pain. She states that she has minimal shortness of breath. She has not had any nausea or vomiting. She recently saw Dr. Bush for cardiology. She states that she was placed on lisinopril. She was unsure of whether or not to take her metoprolol and does not believe that she has been taking it recently. She had a recent admission on 06/13/19 found to have gastrointestinal bleeding and anemia. At that time she was back in normal sinus rhythm. Atrial fibrillation was only diagnosed approximately one month ago. She presents in no acute distress and drove herself here today. She has taken eliquis and asa. Allergies/Adverse Reactions: Allergies Atropine Allergy (Verified 06/28/19 16:03) Carisoprodol [From Soma] Allergy (Verified 06/28/19 16:03) Home Medications: Ambulatory Orders Ascorbic Acid [Vitamin C] 500 mg PO DAILY 04/22/15 Cyanocobalamin [Vitamin B12] 1,000 mcg PO DAILY 04/22/15 Folic Acid 400 mg PO DAILY 04/22/15 Apixaban [Eliquis] 5 mg PO BID 06/13/19 Aspirin [Aspirin Adult Low Dose] 81 mg PO DAILY 06/13/19 Biotin 5,000 mcg PO DAILY 06/13/19 Caltrate 600+D Plus [place] 600-800 mg-Unit 1 tablet PO BID 06/13/19 Carboxymethylcellulose 0.5% [Refresh Plus] 1 drop BOTH_EYES PRN PRN 06/13/19 Metoprolol Tartrate [Lopressor] 25 mg PO BID 06/13/19 Potassium 99 mg PO DAILY 06/13/19 Diltiazem HCl Extended Release [Diltiazem HCl ER] 180 mg PO DAILY #30 cap 06/09 07/27 Review of Systems - Review of Systems Constitutional: States: no symptoms reported EENTM: States: no symptoms reported Respiratory: States: short of breath. Denies: cough, orthopnea, stridor, wheezing Cardiology: States: palpitations. Denies: chest pain, edema, syncope Genitourinary: States: no symptoms reported Musculoskeletal: States: no symptoms reported Skin: States: no symptoms reported Neurological: States: no symptoms reported Endocrine: States: no symptoms reported Hematologic/Lymphatic: States: anemia Past Medical History (General) - Patient Medical History Hx Seizures: No Hx Stroke: No Hx Dementia: No Hx Asthma: No Hx of COPD: No Hx Cardiac Disorders: Yes - Afib Hx Congestive Heart Failure: No Hx Pacemaker: No Hx Hypertension: Yes Hx Thyroid Disease: No Hx Diabetes: No Hx Gastroesophageal Reflux: Yes Hx Renal Disease: No Hx Cancer: No Hx of HIV: No Hx Hepatitis C: No Hx MRSA: No Surgical History: appendectomy, cholecystectomy, tonsillectomy - Vaccination History Hx Tetanus, Diphtheria Vaccination: Yes Hx Influenza Vaccination: Yes Hx Pneumococcal Vaccination: Yes - Social History Hx Tobacco Use: Yes Hx Chewing Tobacco Use: No Hx Alcohol Use: Yes - Occasional Hx Substance Use: No Hx Substance Use Treatment: No Hx Depression: No Hx Physical Abuse: No Hx Emotional Abuse: No Hx Suspected Abuse: No - Female History Patient is a Female of Child Bearing Age (10 -59 yrs old): No Patient : No Family Medical History - Family History Mother Family History: Unknown Living Status: Hx Family Asthma: No Hx Family Congestive Heart Failure: No Hx Family Hypertension: No Hx Family Stroke: No Hx Cardiac Disease: No Hx Family Diabetes: No Hx Family Cancer: No - rectal Hx Family;Other: none Physical Exam - Physical Exam General Appearance: Alert, No apparent distress, Well Developed, Well Groomed, Other - she is thin, very talkative, in no apparent distress Eyes, Ears, Nose, Throat Exam: PERRL/EOMI, pharynx normal Neck: non-tender, full range of motion, supple, normal inspection Respiratory: chest non-tender, lungs clear, normal breath sounds, no respiratory distress, no accessory muscle use Cardiovascular/Chest: normal peripheral pulses, no edema, no JVD, no murmur, tachycardia, irregularly irregular Peripheral Pulses: radial,right: 2+, radial,left: 2+ Gastrointestinal/Abdominal: normal bowel sounds, non tender, soft, no organomegaly, no pulsatile mass Rectal Exam: deferred Extremity: normal range of motion, non-tender, normal inspection, no pedal edema, no calf tenderness Neurologic: oracle apex developer II-XII nml as tested, no motor/sensory deficits, alert, normal mood/affect, oriented x 3 Skin Exam: normal color, warm/dry Lymphatic: no adenopathy Progress - Progress Progress: 06/28/19 16:14 MDM: Arrhythmia, angina, acute coronary syndrome, atrial fibrillation with rapid ventricular response, PSVT, electrolyte disturbance, medication noncompliance,. Patient will have cardiac evaluation performed. Her EKG does reveal evidence of atrial fibrillation with rapid ventricular response at 150. We will start Cardizem to get her rate controlled. We'll monitor her for stability. If patient is also being unstable and consider electrocardioversion. Will get cardiac consultation as necessary. 06/28/19 16:40 patient is stable. Her blood pressure is much improved now. Her rate is down to 107 after 15 of Cardizem. Lab work and x-ray results will be reviewed and CONSULT WITH HER [employer]ELT [employer]SE DRAG OPERATOR TO SEE WHAT HE RECOMMENDS GOING FORWARD. 06/28/19 17:45 patient's heart rate is still around 105-107. I will go ahead and give by mouth Cardizem. Awaiting second troponin. 06/28/19 18:44 second troponin is also negative call elementary math tutor for consultation. 06/28/19 18:49 elementary math tutor called back and is in agreement with current treatment plan. He advised that we continue with Cardizem and have her hold her aspirin since she has no history of coronary artery disease. Continue the eliquis for now. Keep her on the 180 mg Cardizem ER. In keep follow-up on Sunday. 06/28/19 18:56 I went and spoke to the patient about her medications and follow-up. She is currently at a rate of 84 and in a sinus rhythm. 06/28/19 19:03 - Results/Orders Results/Orders: IMPRESSION: No acute findings in the chest. Electronically signed by: Edita Eddy MD 06/28/2019 4:37 PM EVENT PROMOTIONS COORDINATOR Laboratory Tests 06/28/19 16:15 WBC 9.0 RBC 3.94 L Hgb 10.7 L Hct 33.8 L MCV 85.8 MCH 27.1 MCHC 31.6 L RDW 17.1 H Plt Count 422 H MPV 9.3 Absolute Neuts (auto) 5.50 Absolute Lymphs (auto) 2.50 Absolute Monos (auto) 0.80 Absolute Eos (auto) 0.10 Absolute Basos (auto) 0.10 Neutrophils % 61.2 Lymphocytes % 27.9 Monocytes % 8.9 Eosinophils % 1.1 Basophils % 0.9 PT 10.2 INR 1.02 PTT (SP) 22.1 Sodium 143 Potassium 3.2 L Chloride 109 Carbon Dioxide 24 Anion Gap 13.2 BUN 21 H Creatinine 1.05 BUN/Creatinine Ratio 20.0 Random Glucose 142 H Serum Osmolality 290.4 Calcium 9.2 Magnesium 1.9 Creatine Kinase 48 CK-MB (CK-2) 2.5 CK-MB (CK-2) % Not Reportable Troponin I 0.04 - EKG/XRAY/CT EKG: Atrial, Tachy, Fibrillation, ST depression Comments: rate of 150, normal axis, ST segment depression laterally, Departure - Departure Clinical Impression: Atrial fibrillation with RVR, Hypokalemia Time of Disposition: 18:57 Disposition: Discharge to Home or Self Care Condition: Good Departure Forms: ED Discharge - Pt. Copy, Patient Portal Self Enrollment Instructions: Atrial Fibrillation (DC) Referrals: Shalom Marcus MD [Primary Care Provider] - 1-2 Weeks Prescriptions: Diltiazem HCl Extended Release [Diltiazem HCl ER] 180 mg PO DAILY #30 cap Home Medications: Ambulatory Orders Ascorbic Acid [Vitamin C] 500 mg PO DAILY 04/22/15 Cyanocobalamin [Vitamin B12] 1,000 mcg PO DAILY 04/22/15 Folic Acid 400 mg PO DAILY 04/22/15 Apixaban [Eliquis] 5 mg PO BID 06/13/19 Aspirin [Aspirin Adult Low Dose] 81 mg PO DAILY 06/13/19 Biotin 5,000 mcg PO DAILY 06/13/19 Caltrate 600+D Plus [place] 600-800 mg-Unit 1 tablet PO BID 06/13/19 Carboxymethylcellulose 0.5% [Refresh Plus] 1 drop BOTH_EYES PRN PRN 06/13/19 Metoprolol Tartrate [Lopressor] 25 mg PO BID 06/13/19 Potassium 99 mg PO DAILY 06/13/19 Diltiazem HCl Extended Release [Diltiazem HCl ER] 180 mg PO DAILY #30 cap 06/28/19 Additional Instructions: keep follow-up on Sunday. Do not take metoprolol and the Cardizem. Only Card izem at this time. Make sure you take a full list of your medications to your cardiology visit so that there is no further confusion. If you have any issues return to the emergency department for further evaluation.
--- NOTE | 2019-06-28 16:38 | RAD ---
EXAM: XR Chest, 1 View CLINICAL HISTORY: palpitations TECHNIQUE: Frontal view of the chest. COMPARISON: 06/13/2019. FINDINGS: Limitations: None. Lungs: The lungs are hyperinflated. No consolidation. Pleural space: Unremarkable. No pneumothorax. Heart: Unremarkable. No cardiomegaly. Mediastinum: Unremarkable. Bones/joints: Unremarkable. IMPRESSION: No acute findings in the chest. Electronically signed by: Edita Eddy MD 06/28/2019 4:37 PM MEDICAL OFFICE COORDINATOR
[2019-06-28] MEDS ORDERED: SODIUM CHLORIDE 0.9% 1000ML 1,000 ML IVS PRN (16:47)
[2019-06-28] MEDS ORDERED: POTASSIUM CHLORIDE 20 MEQ TAB PO ONE (16:49)
[2019-06-28] MEDS ORDERED: diltiaZEM HCL CD 180 MG CAP PO ONE (17:46)
[2019-06-28 19:04] VITALS: BP 151/98; TEMP 97.6; O2SAT 98
== END 2019-06-28 19:07 | disposition home or self-care (01) ==
LOC: ER 15:42
DX: I48.91 Unspecified atrial fibrillation (principal); R00.0 Tachycardia, unspecified; E87.6 Hypokalemia; I10 Essential (primary) hypertension; K21.9 Gastro-esophageal reflux disease without esophagitis; Z87.891 Personal history of nicotine dependence; Z79.01 Long term (current) use of anticoagulants; Z79.899 Other long term (current) drug therapy; Z79.82 Long term (current) use of aspirin; Z88.8 Allergy status to other drugs, medicaments and biological substances
CPT/HCPCS: 36415; 71045; 80048; 82550; 82553; 84484; 85025; 85610; 85730; 93005; J7030

== ENCOUNTER → 2019-07-30 | Outpatient (CLI) | payer MEDICARE, OTHER | LOC: GMAJ 14:19 | PROVIDERS: ATTEND Family Medicine | DX: E53.8 Deficiency of other specified B group vitamins (principal); D50.9 Iron deficiency anemia, unspecified ==

== ENCOUNTER 2019-07-31 14:04 | Observation (INO) | payer MEDICARE, OTHER ==
[2019-07-31] MEDS ORDERED: METOPROLOL TARTRATE INJ 5 MG/5 ML VIAL IV ONE ×2 (14:32)
--- NOTE | 2019-07-31 14:40 | RAD ---
EXAM DESCRIPTION: Chest,1 View CLINICAL HISTORY: 73 years Female, recurrent afib with rvr COMPARISON: 06/28/2019 FINDINGS: One view/radiograph Heart size and pulmonary vessels are within normal limits. There is no pneumothorax or pleural effusion. The lungs are clear bilaterally. The soft tissues are unremarkable. No acute osseous findings. IMPRESSION: No acute cardiopulmonary abnormality. Electronically signed by: Sen Regan MD 07/31/2019 2:39 PM DIETETICS PROFESSOR
[2019-07-31] MEDS ORDERED: METOPROLOL TARTRATE 25 MG TAB PO ONE (14:54)
[2019-07-31] MEDS ORDERED: POTASSIUM CHLORIDE ELIXIR 20 MEQ/15 ML UD PO ONE (15:31)
[2019-07-31] MEDS ORDERED: diltiaZEM HCL CD 180 MG CAP PO ONE (16:02)
--- NOTE | 2019-07-31 16:17 | ED.PDOC ---
History of Present Illness - General Chief Complaint: Cardiovascular Problem Stated Complaint: Palpitations, light-headedness Time Seen by Provider: 07/31/19 14:11 Source: patient Exam Limitations: no limitations - History of Present Illness Initial Comments: The patient is a 73-year-old female presented emergency room secondary to a sensation of palpitations with shortness of breath and some dizziness that started yesterday afternoon and has persisted into today. The patient does have known atrial fibrillation. It is intermittently in normal sinus rhythm in atr ial fibrillation. She has had at least 3 visits secondary to A. fib with RVR. No hypoxia. No hypotension. The patient feels tremulousness and palpitations. No chest pain. No syncope. No falls. Clinically the patient appears to be taking this remarkably well. Timing/Duration: 24 hours Severity: moderate Improving Factors: nothing Worsening Factors: nothing Associated Symptoms: malaise, weakness - Generalized Allergies/Adverse Reactions: Allergies Atropine Allergy (Verified 06/28/19 16:03) Carisoprodol [From Soma] Allergy (Verified 06/28/19 16:03) Home Medications: Ambulatory Orders Ascorbic Acid [Vitamin C] 500 mg PO DAILY 04/22/15 Cyanocobalamin [Vitamin B12] 1,000 mcg PO DAILY 04/22/15 Folic Acid 400 mg PO DAILY 04/22/15 Biotin 5,000 mcg PO DAILY 06/13/19 Caltrate 600+D Plus [employer] 600-800 mg-Unit 1 tablet PO BID 06/13/19 Carboxymethylcellulose 0.5% [Refresh Plus] 1 drop BOTH_EYES PRN PRN 06/13/19 Metoprolol Tartrate [Lopressor] 25 mg PO BID 06/13/19 Potassium 99 mg PO DAILY 06/13/19 Apixaban [Eliquis] 5 mg PO BID 07/31/19 Diltiazem HCl 120 mg PO DAILY 07/31/19 Review of Systems - Review of Systems Constitutional: States: malaise, weakness - Generalized EENTM: States: no symptoms reported Respiratory: States: short of breath - Mild with exertion Cardiology: States: palpitations Gastrointestinal/Abdominal: States: no symptoms reported Genitourinary: States: no symptoms reported Musculoskeletal: States: no symptoms reported Skin: States: no symptoms reported Neurological: States: no symptoms reported Endocrine: States: no symptoms reported All other Systems: No Change from Baseline Past Medical History (General) - Patient Medical History Hx Seizures: No Hx Stroke: No Hx Dementia: No Hx Asthma: No Hx of COPD: No Hx Cardiac Disorders: Yes - Afib Hx Congestive Heart Failure: No Hx Pacemaker: No Hx Hypertension: Yes Hx Thyroid Disease: No Hx Diabetes: No Hx Gastroesophageal Reflux: Yes Hx Renal Disease: No Hx Cancer: No Hx of HIV: No Hx Hepatitis C: No Hx MRSA: No - Vaccination History Hx Tetanus, Diphtheria Vaccination: Yes Hx Influenza Vaccination: Yes Hx Pneumococcal Vaccination: Yes - Social History Hx Tobacco Use: Yes Hx Chewing Tobacco Use: No Hx Alcohol Use: Yes - Occasional Hx Substance Use: No Hx Substance Use Treatment: No Hx Depression: No Hx Physical Abuse: No Hx Emotional Abuse: No Hx Suspected Abuse: No - Female History Patient : No Family Medical History - Family History Mother Family History: Unknown Living Status: Hx Family Asthma: No Hx Family Congestive Heart Failure: No Hx Family Hypertension: No Hx Family Stroke: No Hx Cardiac Disease: No Hx Family Diabetes: No Hx Family Cancer: Yes - rectal Hx Family;Other: none Physical Exam - Physical Exam General Appearance: Alert, Comfortable, No apparent distress Eye Exam: bilateral normal Ears, Nose, Throat: hearing grossly normal, normal pharynx Neck: full range of motion, supple Respiratory: lungs clear, normal breath sounds, no respiratory distress, no accessory muscle use Cardiovascular/Chest: normal peripheral pulses, no edema, tachycardia Peripheral Pulses: radial,right: 2+, radial,left: 2+ Gastrointestinal/Abdominal: non tender, soft Rectal Exam: deferred Back Exam: no CVA tenderness, no vertebral tenderness Extremity: non-tender, normal inspection, no pedal edema, normal capillary refill 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 Initial EKG does show a very fast rhythm and what is likely some demand ischemia at that rate. Obviously no infarction as the labs are negative for the troponin. This does correct with slowing of the heart rate. The patient is not having any chest pain. She is already on Eliquis. The patient was given 1 dose of 5 mg of IV Lopressor followed by 25 mg of oral metoprolol as well as 1 dose of 10 mg of diltiazem IV followed by 180 mg of Cardizem CD. Heart rates are falling down to near 100. The patient is resting more comfortably at this time. The patient is going to be brought in overnight to make sure that her heart rates remain controlled and that she remains largely asymptomatic. Repeat cardiac enzymes would be worthwhile though the patient is having no chest pain. Vital signs are stable at this point. 07/31/19 16:23 francie jara [phone] - Results/Orders Results/Orders: Chest x-ray shows no evidence of any acute pathology. See report for details. EKG shows initially A. fib with RVR [address] segment depressions and primarily lateral leads. Somewhat anterior as well. Once rate is controlled these do correct. No obvious QT prolongation. Borderline right axis. Repeat EKG shows atrial fibrillation and it. ST segment depressions have corrected. Laboratory Tests 07/31/19 07/31/19 07/31/19 14:15 14:15 14:15 WBC 12.0 H RBC 4.50 Hgb 11.3 L Hct 36.8 MCV 81.7 MCH 25.2 L MCHC 30.9 L RDW 17.6 H Plt Count 447 H MPV 9.7 Absolute Neuts (auto) 6.20 Absolute Lymphs (auto) 4.30 H Absolute Monos (auto) 1.10 H Absolute Eos (auto) 0.10 Absolute Basos (auto) 0.30 H Neutrophils % 51.5 Lymphocytes % 36.0 Monocytes % 8.8 Eosinophils % 1.1 Basophils % 2.6 H PT 10.3 INR 1.04 PTT (SP) 23.0 Sodium 142 Potassium 3.4 L Chloride 101 Carbon Dioxide 24 Anion Gap 20.4 H BUN 29 H Creatinine 1.44 H BUN/Creatinine Ratio 20.1 H Random Glucose 146 H Serum Osmolality 291.6 Calcium 10.2 Magnesium 1.9 Total Bilirubin 0.5 AST 40 ALT 29 Alkaline Phosphatase 63 Creatine Kinase 63 CK-MB (CK-2) 2.7 CK-MB (CK-2) % Not Reportable Troponin I 0.02 B-Natriuretic Peptide 428.0 H* Serum Total Protein 7.8 Albumin 4.7 Globulin 3.1 Albumin/Globulin Ratio 1.5 TSH 07/31/19 14:15 WBC RBC Hgb Hct MCV MCH MCHC RDW Plt Count MPV Absolute Neuts (auto) Absolute Lymphs (auto) Absolute Monos (auto) Absolute Eos (auto) Absolute Basos (auto) Neutrophils % Lymphocytes % Monocytes % Eosinophils % Basophils % PT INR PTT (SP) Sodium Potassium Chloride Carbon Dioxide Anion Gap BUN Creatinine BUN/Creatinine Ratio Random Glucose Serum Osmolality Calcium Magnesium Total Bilirubin AST ALT Alkaline Phosphatase Creatine Kinase CK-MB (CK-2) CK-MB (CK-2) % Troponin I B-Natriuretic Peptide Serum Total Protein Albumin Globulin Albumin/Globulin Ratio TSH 2.52 Departure - Departure Clinical Impression: Atrial fibrillation with rapid ventricular response Disposition: Admit Patient Departure Forms: ED Discharge - Pt. Copy, Patient Portal Self Enrollment Referrals: Shalom Marcus MD [Primary Care Provider] - 1-2 Weeks Home Medications: Ambulatory Orders Ascorbic Acid [Vitamin C] 500 mg PO DAILY 04/22/15 Cyanocobalamin [Vitamin B12] 1,000 mcg PO DAILY 04/22/15 Folic Acid 400 mg PO DAILY 04/22/15 Biotin 5,000 mcg PO DAILY 06/13/19 Caltrate 600+D Plus [place] 600-800 mg-Unit 1 tablet PO BID 06/13/19 Carboxymethylcellulose 0.5% [Refresh Plus] 1 drop BOTH_EYES PRN PRN 06/13/19 Metoprolol Tartrate [Lopressor] 25 mg PO BID 06/13/19 Potassium 99 mg PO DAILY 06/13/19 Apixaban [Eliquis] 5 mg PO BID 07/31/19 Diltiazem HCl 120 mg PO DAILY 07/31/19 Decision To Admit - Decistion To Admit Decision to Admit Reason: Medical Nature Decision to Admit Date: 07/31/19 Decision to Admit Time: 16:23
[2019-07-31] MEDS ORDERED: SODIUM CHLORIDE 0.9% (FLUSH) 10 ML SYG IV PRN (18:21)
[2019-07-31] MEDS ORDERED: IV SET AND CAP CHANGE INJ INJ SCH (18:30)
--- NOTE | 2019-07-31 18:44 | SSS ---
SUPERVISING PHYSICIAN: Juan Manuel Montemayor MD CHIEF COMPLAINT: Palpitations. HISTORY OF PRESENT ILLNESS: This is a 73-year-old female with a history of atrial fibrillation who came with palpitations. She stated it started yesterday afternoon and has persisted throughout the day. When she came in the Emergency Room, she was found to have a heart rate in the 190s. She was given IV Lopressor as well as IV diltiazem. This was followed with a p.o. dose of metoprolol and p.o. dose of 180 mg of diltiazem. At home, she takes 25 mg b.i.d. of metoprolol and 120 mg daily of diltiazem. She was also found to have a slightly low potassium at 3.4 and was given p.o. potassium. She persisted with the atrial fibrillation and was complaining of a little bit of shortness of breath. Therefore, she was referred for observation. She actually has an appointment with Dr. Chavez tomorrow. She sees him on a regular basis. Once she got to the Floor, she converted to a normal sinus rhythm with a heart rate in the 70s. Blood pressure has maintained throughout this whole scenario. PAST MEDICAL HISTORY: 1. Atrial fibrillation. 2. Chronic obstructive pulmonary disease. 3. Gastroesophageal reflux disease. 4. Hypertension. 5. Microscopic colitis. 6. Osteoporosis. 7. History of iron deficiency anemia. 8. Insomnia. PAST SURGICAL HISTORY: 1. Appendectomy. 2. Cholecystectomy. 3 Hysterectomy. 4. Tonsillectomy and adenoidectomy. 5. Breast biopsy 5 times with benign findings. 6. Hemorrhoidectomy. 7. Laminectomy. MEDICATIONS: Please medication reconciliation list once they are verified in the computer. ALLERGIES: ATROPINE, CARISOPRODOL. FAMILY HISTORY: Reviewed and noncontributory. SOCIAL HISTORY: Nondrinker, nonsmoker, no illicit drugs. REVIEW OF SYSTEMS: CONSTITUTIONAL: No fever or chills. No recent weight loss or weight gain. HEENT: No headaches, vision changes, ear pain, nasal congestion or throat pain. RESPIRATORY: Positive for a little bit of shortness of breath, but no cough, hemoptysis or pleuritic chest pain. CARDIOVASCULAR: Positive for palpitations and chest pain. No peripheral edema. GASTROINTESTINAL: No nausea, vomiting, diarrhea, constipation or abdominal pain. GENITOURINARY: No dysuria, frequency or flank pain. HEMATOLOGIC: Positive for easy bruising when she is on blood thinners, but no transfusion reaction. MUSCULOSKELETAL: No muscle cramps, joint pain or joint swelling. SKIN: No rashes, lesions or wounds. ENDOCRINE: No polydipsia, polyuria or polyphagia. No heat or cold intolerance. NEUROLOGIC: No headache, syncope, paresthesias or seizures. PHYSICAL EXAMINATION: VITAL SIGNS: Blood pressure 98/82. Heart rate 76. Respiratory rate 20. Temperature 97.0. Oxygen saturation 96%. GENERAL: Ms. Bassett is a 73-year-old female in no active distress currently. NEUROLOGIC: The patient is alert and oriented. LUNGS: Clear to auscultation bilaterally. CARDIOVASCULAR: Regular rate and rhythm. Normal S1, S2. ABDOMEN: Soft. Positive bowel sounds. GENITOURINARY: Deferred. EXTREMITIES: Lower extremities with no edema. LABORATORY: Labs in the Emergency Room showed white count 12.0, platelet count 447, no left shift, hemoglobin 11.3. Coagulation studies normal. Chemistry shows potassium 3.4, BUN 29, creatinine 1.44. BNP 428. Urinalysis shows no signs of infection. Chest x-ray with no acute abnormalities. TSH is normal. ASSESSMENT: 1. Atrial fibrillation with rapid ventricular response. 2. Hypertension. 3. Hypokalemia. 4. Chronic obstructive pulmonary disease with no acute exacerbation. 5. Anemia, stable. PLAN: At this time, the patient will be monitored overnight to ensure stable heart rate and other hemodynamics. If she maintains, she can be discharged tomorrow as she already has a followup with her primary care physician. We will resume her home medications once they are placed in the computer. ADDENDUM: Patient remained in sinus rhythm overnight. I will discharge home as she has a follow up with her music minister today, and will let him adjust her medications. #[id number] [facility]
[2019-07-31] MEDS ORDERED: METOPROLOL TARTRATE 25 MG TAB ONE (20:24)
[2019-07-31] MEDS ORDERED: METOPROLOL TARTRATE 25 MG TAB PO SCH (21:00)
[2019-08-01 05:17] VITALS: BP 166/79; TEMP 98; O2SAT 94
== END 2019-08-01 07:18 | disposition home or self-care (01) ==
LOC: ER 14:04 → MS 17:09
PROVIDERS: ADMIT Nurse Practitioner; ATTEND Nurse Practitioner
DX: I48.19 Other persistent atrial fibrillation (principal); I10 Essential (primary) hypertension; E87.6 Hypokalemia; J44.9 Chronic obstructive pulmonary disease, unspecified; D50.9 Iron deficiency anemia, unspecified; I49.3 Ventricular premature depolarization; K21.9 Gastro-esophageal reflux disease without esophagitis; M81.0 Age-related osteoporosis without current pathological fracture; G47.00 Insomnia, unspecified; Z79.01 Long term (current) use of anticoagulants; Z79.899 Other long term (current) drug therapy; Z88.8 Allergy status to other drugs, medicaments and biological substances; Z87.891 Personal history of nicotine dependence

== ENCOUNTER → 2019-08-14 | Outpatient (CLI) | payer MEDICARE, OTHER | LOC: GMAJ 12:03 | PROVIDERS: ATTEND Family Medicine | DX: D50.0 Iron deficiency anemia secondary to blood loss (chronic) (principal) ==

== ENCOUNTER 2019-08-22 14:04 | Emergency (ER) | payer MEDICARE, OTHER ==
[2019-08-22] MEDS: SODIUM CHLORIDE 0.9% 1000ML 1,000 ML IVS ONE (14:30)
[2019-08-22 15:09] VITALS: TEMP 97
--- NOTE | 2019-08-22 15:51 | ED.PDOC ---
History of Present Illness - General Chief Complaint: General Stated Complaint: felt dizzy and faint after iron infusion today Time Seen by Provider: 08/22/19 14:13 Source: patient Exam Limitations: no limitations - History of Present Illness Initial Comments: After having an episode of some dizziness with mild nausea. Mild vertigo symptoms. No syncope. No chest pain. Mild shortness of breath. The symptoms occurred within 30 minutes to an hour after completing a iron sucrose infusion for iron deficiency anemia. This is her first time with this medicine. Largely by the time she arrives at the emergency room her symptoms have resolved. She does have chronic hypotension which appears to be elevated but still at her baseline. No chest pain here. She appears to be in normal sinus rhythm here with a heart rate in the 60s. She is pleasant and cooperative. She is much more talkative today than normal Timing/Duration: 1 hour Severity: moderate Improving Factors: nothing Worsening Factors: nothing Associated Symptoms: diaphoresis, loss of appetite, malaise, nausea/vomiting, shortness of breath Allergies/Adverse Reactions: Allergies Atropine Allergy (Verified 08/22/19 14:12) Carisoprodol [From Soma] Allergy (Verified 08/22/19 14:12) Home Medications: Ambulatory Orders Ascorbic Acid [Vitamin C] 500 mg PO DAILY 04/22/15 Cyanocobalamin [Vitamin B12] 1,000 mcg PO DAILY 04/22/15 Folic Acid 400 mcg PO DAILY 04/22/15 Biotin 5,000 mcg PO DAILY 06/13/19 Caltrate 600+D Plus Electrical Appliance Repairer 600-800 mg-Unit 1 tablet PO BID 06/13/19 Carboxymethylcellulose 0.5% [Refresh Plus] 1 drop BOTH_EYES PRN PRN 06/13/19 Metoprolol Tartrate [Lopressor] 25 mg PO BID 06/13/19 Potassium 99 mg PO DAILY 06/13/19 Apixaban [Eliquis] 5 mg PO DAILY 07/31/19 Diltiazem HCl 120 mg PO DAILY 07/31/19 Vitamin E 400 unit PO DAILY 07/31/19 Review of Systems - Review of Systems Constitutional: States: malaise, weakness - Transient generalized EENTM: States: no symptoms reported Respiratory: States: short of breath - Mild Cardiology: States: no symptoms reported Gastrointestinal/Abdominal: States: nausea Genitourinary: States: no symptoms reported Musculoskeletal: States: no symptoms reported Skin: States: no symptoms reported Neurological: States: anxiety Endocrine: States: no symptoms reported All other Systems: No Change from Baseline Past Medical History (General) - Patient Medical History Hx Seizures: No Hx Stroke: No Hx Dementia: No Hx Asthma: No Hx of COPD: No Hx Cardiac Disorders: Yes Hx Congestive Heart Failure: No Hx Pacemaker: No Hx Hypertension: Yes Hx Thyroid Disease: No Hx Diabetes: No Hx Gastroesophageal Reflux: No Hx Renal Disease: No Hx Cancer: No Hx of HIV: No Hx Hepatitis C: No Hx MRSA: No - Vaccination History Hx Tetanus, Diphtheria Vaccination: Yes Hx Influenza Vaccination: Yes Hx Pneumococcal Vaccination: Yes Immunizations Up to Date: Yes - Social History Hx Tobacco Use: No Hx Chewing Tobacco Use: No Hx Alcohol Use: No Hx Substance Use: No Hx Substance Use Treatment: No Hx Depression: No Feels Threatened In Home Enviroment: No Feels Threatened In a Relationship: No Hx Physical Abuse: No Hx Emotional Abuse: No Hx Suspected Abuse: No - Female History Patient is a Female of Child Bearing Age (10 -59 yrs old): No Patient : No Family Medical History - Family History Mother Family History: Unknown Living Status: Hx Family Asthma: No Hx Family Congestive Heart Failure: No Hx Family Hypertension: No Hx Family Stroke: No Hx Cardiac Disease: No Hx Family Diabetes: No Hx Family Cancer: Yes - rectal Hx Family;Other: none Physical Exam - Physical Exam General Appearance: Alert, Anxious, No apparent distress Eye Exam: bilateral normal Ears, Nose, Throat: hearing grossly normal, normal ENT inspection Neck: full range of motion, supple Respiratory: lungs clear, normal breath sounds, no respiratory distress, no accessory muscle use Cardiovascular/Chest: normal peripheral pulses, regular rate, rhythm Peripheral Pulses: radial,right: 2+, radial,left: 2+ Gastrointestinal/Abdominal: non tender, soft Rectal Exam: deferred Extremity: normal range of motion, no calf tenderness, normal capillary refill, pedal edema - Trace pedal edema 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 She did receive a liter of IV fluids here and is feeling better. She has been monitored on telemetry and lab work looks reassuring. She will be allowed to go home. Consideration should be given to changing the form of IV iron therapy for this patient. Keep follow-up with primary care doctor. ER warnings were given. francie jara 747 - Results/Orders Results/Orders: EKG shows normal sinus rhythm at 61 bpm. She does have mild chronic scooping of the ST segments diffusely which is not new. No obvious new EKG changes concerning for acute ischemia. R wave progression is consistent with previous EKGs. [place] interval appears slightly short. QT interval is mildly prolonged at 467 ms. Mild right axis. Borderline LVH criteria. Laboratory Tests 08/22/19 08/22/19 08/22/19 14:34 14:34 14:34 WBC 12.2 H RBC 5.21 Hgb 12.8 Hct 41.4 MCV 79.5 L MCH 24.6 L MCHC 30.9 L RDW 18.4 H Plt Count 467 H MPV 9.4 Absolute Neuts (auto) 6.70 Absolute Lymphs (auto) 4.30 H Absolute Monos (auto) 0.90 H Absolute Eos (auto) 0.20 Absolute Basos (auto) 0.20 H Neutrophils % 55.1 Lymphocytes % 35.1 Monocytes % 7.2 Eosinophils % 1.2 Basophils % 1.4 Normal RBC Morphology Stain quality accept Sodium 139 Potassium 3.5 L Chloride 106 Carbon Dioxide 22 Anion Gap 14.5 BUN 26 H Creatinine 1.10 BUN/Creatinine Ratio 23.6 H Random Glucose 126 H Serum Osmolality 283.8 Calcium 9.0 Magnesium 2.3 Total Bilirubin 0.7 AST 32 ALT 18 Alkaline Phosphatase 56 Creatine Kinase 60 CK-MB (CK-2) 2.4 CK-MB (CK-2) % Not Reportable Troponin I < 0.02 Serum Total Protein 7.3 Albumin 4.3 Globulin 3.0 Albumin/Globulin Ratio 1.4 Departure - Departure Clinical Impression: Infusion reaction Qualifiers: Encounter type: initial encounter Qualified Code(s): T80.90XA - Unspecified complication following infusion and therapeutic injection, initial encounter Disposition: Discharge to Home or Self Care Condition: Fair Departure Forms: ED Discharge - Pt. Copy, Patient Portal Self Enrollment Instructions: Adverse Drug Reactions, Adult (DC) Diet: regular diet Activity: increase activity as tolerated Referrals: Shalom Marcus MD [Primary Care Provider] - 1-2 Weeks Home Medications: Ambulatory Orders Ascorbic Acid [Vitamin C] 500 mg PO DAILY 04/22/15 Cyanocobalamin [Vitamin B12] 1,000 mcg PO DAILY 04/22/15 Folic Acid 400 mcg PO DAILY 04/22/15 Biotin 5,000 mcg PO DAILY 06/13/19 Caltrate 600+D Plus [place] 600-800 mg-Unit 1 tablet PO BID 06/13/19 Carboxymethylcellulose 0.5% [Refresh Plus] 1 drop BOTH_EYES PRN PRN 06/13/19 Metoprolol Tartrate [Lopressor] 25 mg PO BID 06/13/19 Potassium 99 mg PO DAILY 06/13/19 Apixaban [Eliquis] 5 mg PO DAILY 07/31/19 Diltiazem HCl 120 mg PO DAILY 07/31/19 Vitamin E 400 unit PO DAILY 07/31/19 Additional Instructions: The patient is a 73-year-old female presenting with symptoms of dizziness quickly following an IV iron sucrose infusion. She did receive a liter of IV fluids here and is feeling better. She has been monitored on telemetry and lab work looks reassuring. She will be allowed to go home. Consideration should be given to changing the form of IV iron therapy for this patient. Keep follow-up with primary care doctor. ER warnings were given.
[2019-08-22 16:07] VITALS: BP 184/99; O2SAT 93
== END 2019-08-22 16:09 | disposition home or self-care (01) ==
LOC: ER 14:04
DX: R42 Dizziness and giddiness (principal); T45.4X5A Adverse effect of iron and its compounds, initial encounter; R06.02 Shortness of breath; D50.9 Iron deficiency anemia, unspecified; I51.9 Heart disease, unspecified; I10 Essential (primary) hypertension; Z79.01 Long term (current) use of anticoagulants; Z79.899 Other long term (current) drug therapy; Z88.5 Allergy status to narcotic agent
CPT/HCPCS: 36415; 80053; 82550; 82553; 83735; 84484; 85025; 93005; J7030

== ENCOUNTER → 2019-10-08 | Outpatient (CLI) | payer MEDICARE, OTHER | LOC: LAB.NP 12:03 | PROVIDERS: ATTEND Family Medicine | DX: D50.9 Iron deficiency anemia, unspecified (principal); I10 Essential (primary) hypertension ==

== ENCOUNTER 2019-12-22 14:54 | Emergency (ER) | payer MEDICARE, OTHER ==
--- NOTE | 2019-12-22 15:04 | ED.PDOC ---
History of Present Illness - General Chief Complaint: Cardiovascular Problem Time Seen by Provider: 12/22/19 15:00 Source: patient, Vital Signs reviewed Additional Information: This is a 74 female, with her hypertension presented to the ER because of palpitation, patient stated that since yesterday she has noticed that her higher is fluttering, he does have a history of atrial fibrillation and she is scheduled to have a ablation on January This has been an ongoing problem for the past 6 months, and she feels this is palpitations on and off worsening since the past 2 days, Denies any fever chills denies any chest pain Tinnitus former smoker denies drugs denies alcohol patient cadiologist is Dr Gleason - History of Present Illness Timing/Duration: other - yesterday Severity: moderate Location: other - no chest pain Activities at Onset: other - intermittent Improving Factors: nothing Worsening Factors: nothing Allergies/Adverse Reactions: Allergies Atropine Allergy (Verified 08/22/19 14:12) Carisoprodol [From Soma] Allergy (Verified 08/22/19 14:12) Home Medications: Ambulatory Orders Ascorbic Acid [Vitamin C] 500 mg PO DAILY 04/22/15 Cyanocobalamin [Vitamin B12] 1,000 mcg PO DAILY 04/22/15 Folic Acid 400 mcg PO DAILY 04/22/15 Biotin 5,000 mcg PO DAILY 06/13/19 Caltrate 600+D Plus Pararescue Manager 600-800 mg-Unit 1 tablet PO BID 06/13/19 Carboxymethylcellulose 0.5% [Refresh Plus] 1 drop BOTH_EYES PRN PRN 06/13/19 Metoprolol Tartrate [Lopressor] 25 mg PO BID 06/13/19 Potassium 99 mg PO DAILY 06/13/19 Apixaban [Eliquis] 5 mg PO DAILY 07/31/19 Diltiazem HCl 120 mg PO DAILY 07/31/19 Vitamin E 400 unit PO DAILY 07/31/19 Review of Systems - Review of Systems Constitutional: States: no symptoms reported EENTM: States: no symptoms reported Respiratory: States: no symptoms reported Cardiology: States: palpitations Gastrointestinal/Abdominal: States: no symptoms reported Genitourinary: States: no symptoms reported Musculoskeletal: States: no symptoms reported Skin: States: no symptoms reported Neurological: States: no symptoms reported Endocrine: States: no symptoms reported Hematologic/Lymphatic: States: no symptoms reported Past Medical History (General) - Patient Medical History Hx Seizures: No Hx Stroke: No Hx Dementia: No Hx Asthma: No Hx of COPD: No Hx Cardiac Disorders: Yes Hx Congestive Heart Failure: No Hx Pacemaker: No Hx Hypertension: Yes Hx Thyroid Disease: No Hx Diabetes: No Hx Gastroesophageal Reflux: No Hx Renal Disease: No Hx Cancer: No Hx of HIV: No Hx Hepatitis C: No Hx MRSA: No - Vaccination History Hx Tetanus, Diphtheria Vaccination: Yes Hx Influenza Vaccination: Yes Hx Pneumococcal Vaccination: Yes - Social History Hx Tobacco Use: No Hx Chewing Tobacco Use: No Hx Alcohol Use: No Hx Substance Use: No Hx Substance Use Treatment: No Hx Depression: No Hx Physical Abuse: No Hx Emotional Abuse: No Hx Suspected Abuse: No - Female History Patient : No Family Medical History - Family History Mother Family History: Unknown Living Status: Hx Family Asthma: No Hx Family Congestive Heart Failure: No Hx Family Hypertension: No Hx Family Stroke: No Hx Cardiac Disease: No Hx Family Diabetes: No Hx Family Cancer: Yes - rectal Hx Family;Other: none Physical Exam - Physical Exam General Appearance: Alert, Well Developed, Well Groomed, Well Hydrated, Well Nourished Eyes, Ears, Nose, Throat Exam: PERRL/EOMI, normal ENT inspection, TMs normal Neck: non-tender, full range of motion, supple, normal inspection Respiratory: chest non-tender, lungs clear, normal breath sounds, no respiratory distress, no accessory muscle use Cardiovascular/Chest: normal peripheral pulses, regular rate, rhythm, no edema, no gallop, no JVD, no murmur Gastrointestinal/Abdominal: normal bowel sounds, non tender, soft, no organomegaly, no pulsatile mass Extremity: normal range of motion, non-tender, normal inspection, no pedal edema, no calf tenderness 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 I ordered basic labs including chest x-ray TSH troponins chemistry and CBC Patient heart rate is come down is now 85 normal sinus rhythm patient still has no chest pain does not appear toxic, normal hemoglobin normal electrolytes and normal TSH and troponins were also normal I did call Dr. Gleason to try to set up an appointment for the patient an earlier date will give copies of all the blood work to the patient as well And will be discharged home with instruction to return to the ER immediately if there is any chest pressure, nausea, medical shortness of breath tingling sensation in the chest with radiation to the left arm right arm both arms neck back or jaw sensation of fainting excessive sweating fatigue or any other concerns 16:15 Departure - Departure Clinical Impression: Palpitation Disposition: Discharge to Home or Self Care Departure Forms: ED Discharge - Pt. Copy, Patient Portal Self Enrollment Instructions: DI for Chest Pain, Palpitations Diet: resume usual diet Referrals: Shalom Marcus MD [Primary Care Provider] - 1-2 Weeks Home Medications: Ambulatory Orders Ascorbic Acid [Vitamin C] 500 mg PO DAILY 04/22/15 Cyanocobalamin [Vitamin B12] 1,000 mcg PO DAILY 04/22/15 Folic Acid 400 mcg PO DAILY 04/22/15 Biotin 5,000 mcg PO DAILY 06/13/19 Caltrate 600+D Plus Cottle 600-800 mg-Unit 1 tablet PO BID 06/13/19 Carboxymethylcellulose 0.5% [Refresh Plus] 1 drop BOTH_EYES PRN PRN 06/13/19 Metoprolol Tartrate [Lopressor] 25 mg PO BID 06/13/19 Potassium 99 mg PO DAILY 06/13/19 Apixaban [Eliquis] 5 mg PO DAILY 07/31/19 Diltiazem HCl 120 mg PO DAILY 07/31/19 Vitamin E 400 unit PO DAILY 07/31/19 Additional Instructions: return to the ER immediately if there is any chest pressure, nausea, medical shortness of breath tingling sensation in the chest with radiation to the left arm right arm both arms neck back or jaw sensation of fainting excessive sweating fatigue or any other concerns
[2019-12-22 15:08] VITALS: TEMP 98.5; O2SAT 96
--- NOTE | 2019-12-22 15:14 | RAD ---
EXAM DESCRIPTION: Chest,1 View CLINICAL HISTORY: 74 years Female, palpitations COMPARISON: 07/31/2019. TECHNIQUE: AP radiograph of the chest was obtained. FINDINGS: Trachea is midline.The cardiomediastinal silhouette is normal in size. The pulmonary vasculature is within normal limits.The lungs are clear with no acute consolidation.No evidence of pleural effusions. IMPRESSION: No acute cardiopulmonary process. Electronically signed by: Kelsie Bull MD 12/22/2019 3:13 PM CDT
[2019-12-22 16:37] VITALS: BP 142/96
== END 2019-12-22 16:30 | disposition home or self-care (01) ==
LOC: ER 14:54
DX: R00.2 Palpitations (principal); I10 Essential (primary) hypertension; I48.91 Unspecified atrial fibrillation; Z79.01 Long term (current) use of anticoagulants

== ENCOUNTER → 2020-03-22 | Outpatient (CLI) | payer MEDICARE, OTHER ==
--- NOTE | 2020-03-23 10:30 | MAM ---
EXAM DESCRIPTION: Breast,Bilateral (accession [id number]), 3D Diagnostic, Bilateral (accession [id number]): Ultrasound CLINICAL HISTORY: 74 yearsFemale6 MONTH FOLLOW UP dense breast tissue and microcalcifications.. No other complaints. No family history breast cancer. Menarche age unknown. Childbirth age 16. Hysterectomy age unknown. No HRT. Benign right breast biopsy. Lifetime risk of developing breast cancer (Tyrer-Cuzick model)(%): 3.3. COMPARISON: Diagnostic digital breast tomosynthesis and directed ultrasound September 01. Screening bilateral digital breast tomosynthesis May 2019. Screening bilateral digital breast tomosynthesis May 2018 TECHNIQUE: Bilateral LM, CC, and MLO projection full-field images, digital tomosynthesis technique. Bilateral 2-D digital full-field images: LM, CC, and MLO projections. Bilateral LM and CC spot magnification images of the region of interest. CAD available for 2-D images.. Transcutaneous scanning of the bilateral breasts utilizing arriola-scale and Doppler modes. Scanning performed by the it engineer with observation by Dr. Mendiola. FINDINGS: The breast parenchymal density pattern is: Heterogeneously dense breast tissue, which may obscure small masses. No skin thickening or nipple retraction again noted are diffuse groups of microcalcifications which are stable in the left breast predominantly in the upper-outer quadrant. Also associated with dense fibroglandular tissue in the 12:00 position of the left breast 8 cm from the nipple. These are stable. Diffuse microcalcifications anterior two thirds of the right breast more prevalent in the upper outer quadrant, and associated with focal fibroglandular tissues at the 9:00 position, 10 cm from the nipple, near the chest wall. These appear stable since the prior study. No new focal, stellate mass or density, focal asymmetry bilaterally. Ultrasound: Scanning of the lateral posterior right breast 10 cm from the nipple near the chest wall at 9:00. Predominantly fibroglandular tissues mixed with fatty tissues. No dominant solid mass, no distinct cyst, no fluid collection, no large calcifications. No overlying skin changes are stable since the prior study. Directed scanning of the umbilical artery position of the left breast 8 cm from the nipple. Similar findings as in the right breast with no abnormal findings. Stable since the prior study. IMPRESSION: BI-RADS CATEGORY: 3 - PROBABLY BENIGN. RECOMMENDATIONS: FOLLOW-UP: Short interval (6-month) bilateral diagnostic breast digital tomosynthesis and directed breast ultrasound.. The FINDINGS and the FOLLOW-UP plan were reviewed in person with the patient after the examination. Written communication explaining the IMPRESSION and FOLLOW-UP will be mailed to the patient and referring care provider. Electronically signed by: Tim Mendiola MD 03/23/2020 10:29 AM CDT
== END ==
LOC: MAMMO 10:00
PROVIDERS: ATTEND Family Medicine
DX: R92.1 Mammographic calcification found on diagnostic imaging of breast (principal)
CPT/HCPCS: 76641; 77066; G0279

== ENCOUNTER → 2020-06-07 | Outpatient (CLI) | payer MEDICARE, OTHER ==
--- NOTE | 2020-06-07 16:33 | US ---
EXAM DESCRIPTION: Abdomen,Complete: Ultrasound. CLINICAL HISTORY: 74 years Female OTHER SPECIFIED DISEASES OF LIVER COMPARISON: None Available. TECHNIQUE: Transabdominal scanning: grayscale and Doppler modes. FINDINGS: Gallbladder: Surgically absent. No fluid in the gallbladder fossa. Abdominal wall Non-tender with transducer pressure. Common bile duct: caliber 7.1 mm borderline dilated postcholecystectomy. Liver: normal echogenicity; contour liver capsule smooth where seen. No fluid around the liver. Intrahepatic biliary ducts normal caliber. Doppler hepatopedal flow and normal caliber portal vein 7 mm. Long axis right lobe 12.4 cm. Pancreas: normal size and echogenicity. Duct not seen. Complete abdominal aorta: Normal caliber from the proximal segment to the distal bifurcation.. IVC: visualized and normal caliber. Right kidney: long axis measures 9.3 cm; volume 78.4 mL.. Cortical echogenicity . Physiologic for patient's age. Normal cortical thickness. No echogenic stones; no hydronephrosis. Left kidney: long axis measures 8.1 cm; volume 74.5 mm. Cortical echogenicity . Physiologic for patient's age. Normal cortical thickness. No echogenic stones; no hydronephrosis. Spleen: Normal. No focal lesions.. 8.5 cm. long axis. Other: None. IMPRESSION: 1. Liver and pancreas are unremarkable. Normal echogenicity and size of the spleen. 2. Bilateral kidneys showing age-related changes with no significant abnormalities. Abdominal aorta and IVC are normal caliber. 3. Prior cholecystectomy. No wall tenderness. Common bile and borderline dilated for patient's age postcholecystectomy. Electronically signed by: Tim Mendiola MD 06/07/2020 4:31 PM [facility]
== END ==
LOC: US 12:49
PROVIDERS: ATTEND Family Medicine
DX: K76.89 Other specified diseases of liver (principal); Z90.49 Acquired absence of other specified parts of digestive tract; N28.89 Other specified disorders of kidney and ureter